=== PATIENT | male | born 1960 | race Two or more races ===

== ENCOUNTER 2022-10-28 09:47 | Inpatient (IN) | payer OTHER ==
[~2022-10-28] VITALS: Ht 188 cm; Wt 151.0 kg
[2022-10-28] MEDS ORDERED: methylPREDNISolone SOD SUCC 125 MG/2 ML VL IV ONE (10:30)
[2022-10-28 10:40] VITALS: PULSE 108; RESP 20; O2SAT 97
[2022-10-28 11:09] LABS: Basophils # (auto) 0 10 ^3/uL (0-0.2); Basophils % (auto) 0.2 % (0.0-2.0); Eosinophils # (auto) 0 10 ^3/uL (0-0.8); Lymphocytes # (auto) 0.3 10 ^3/uL (0.4-5.4); Mean Corpuscular Hemoglobin 25.6 pg (28.0-32.0)
[2022-10-28 11:13] LABS: Hematocrit 35.1 % (41.0-53.0); Lymphocytes % (auto) 2.4 % (10.0-50.0); Mean Corpuscular Hgb Conc. 31.2 g/dL (32.0-36.0); Mean Corpuscular Volume 82.1 fL (80.0-100.0); Monocytes # (auto) 0.5 10 ^3/uL (0-1.3); Monocytes % (auto) 4.3 % (0.0-12.0); Neutrophils # (auto) 11.2 10 ^3/uL (1.6-8.6); Neutrophils % (auto) 93.1 % (37.0-80.0); Nucleated Red Blood Cells % 0.2 %; Red Blood Cells 4.27 10^6/uL (4.5-5.90); Red Cell Distribution Width 19.9 % (11.8-14.3)
[2022-10-28] MEDS ORDERED: CLINDAMYCIN 900MG IV 50 ML IV ONE (11:15)
[2022-10-28 11:19] LABS: Lactic Acid w/Reflex 2.2 mmol/L (0.4-2.0)
[2022-10-28 11:21] LABS: Calcium 8.6 mg/dL (8.5-10.1); Magnesium 1.8 mg/dL (1.6-2.6); Potassium 4.5 mmol/L (3.5-5.1)
[2022-10-28] MEDS ORDERED: FUROSEMIDE 40 MG/4 ML VIAL IV ONE (11:30)
[2022-10-28 11:34] LABS: BUN/Creatinine Ratio 18.2 (10.0-20.0); Bilirubin, Total 1.4 mg/dL (0.2-1.0); Total Protein 6.6 g/dL (6.4-8.2)
[2022-10-28] MEDS ORDERED: VANCOMYCIN 1GM/250ML 250 ML IV ONE (11:45)
[2022-10-28] MEDS ORDERED: DEXTROSE (50%) 50ML SYRG IV PRN (13:45)
[2022-10-28] MEDS ORDERED: VANCOMYCIN PER PHARMACY 0 MG IV SCH (13:45)
[2022-10-28] MEDS ORDERED: IPRATROPIUM BROM 0.5 MG/2.5ML INH SOL NEB SCH (14:00)
[2022-10-28] MEDS: cefTRIAXone 1GM/50ML D5W 50 ML IV SCH (14:08)
[2022-10-28] MEDS: methylPREDNISolone SOD SUCC 125 MG/2 ML VL IV SCH ×2 (14:25→23:26)
[2022-10-28 14:44] LABS: INR 2.29 (0.9-1.15)
[2022-10-28] MEDS ORDERED: WARFARIN SODIUM 2.5 MG TAB PO ONE ×2 (17:00)
[2022-10-28 17:23] LABS: Creatinine, Urine 59 mg/dL (30.0-125.0); Sodium Urine 82 mmol/L (40-220)
[2022-10-28] MEDS: InsuLIN REG 1unit/0.01ml Soln (100units/ml) SC SCH ×2 (17:46→23:44)
[2022-10-28] MEDS: ACCU-CHEK COMFORT CURVE STRIP VI SCH ×2 (17:47→23:44)
[2022-10-28] MEDS: FUROSEMIDE 100 MG/10ML VIAL IV SCH (17:50)
[2022-10-28 18:00] LABS: Urine Bacteria FEW /hpf (None Seen); Urine Blood 1+ /uL (Negative); Urine Mucus FEW (None Seen); Urine WBC 2 /hpf (0 - 3)
[2022-10-28 19:01] VITALS: PULSE 111; RESP 23; O2SAT 97
[2022-10-28] MEDS: IPRATROPIUM BROM 0.5 MG/2.5ML INH SOL NEB SCH (19:01)
[2022-10-28] MEDS: LEVALBUTEROL HCL 1.25 MG/3 ML NEB NEB SCH (19:01)
[2022-10-28 19:11] VITALS: PULSE 103; RESP 21; O2SAT 100
[2022-10-28 20:00] VITALS: PULSE 111; RESP 24; O2SAT 95
[2022-10-28] MEDS: VANCOMYCIN 1GM/250ML 250 ML IV SCH (23:26)
[2022-10-28] MEDS: METOPROLOL TARTRATE 25 MG TAB PO SCH (23:27)
[2022-10-28] MEDS: ATORVASTATIN 20 MG TAB PO SCH (23:27)
[2022-10-29] VITALS (11 sets, daily range): BP systolic 116–117; BP diastolic 63–72; PULSE 103–127; RESP 16–23; TEMP 97.5–97.6; O2SAT 92–100
[2022-10-29] MEDS: LEVALBUTEROL HCL 1.25 MG/3 ML NEB NEB SCH ×4 (00:31→18:04)
[2022-10-29] MEDS: IPRATROPIUM BROM 0.5 MG/2.5ML INH SOL NEB SCH ×4 (00:31→18:04)
[2022-10-29 05:45] LABS: Alanine Aminotransferase 21 U/L (16-61); Albumin 2.7 g/dL (3.4-5.0); Anion Gap 11 (5-15); Aspartate Aminotransferase 31 U/L (15-37); BUN/Creatinine Ratio 21.9 (10.0-20.0); Blood Urea Nitrogen 55 mg/dL (7-18); Calcium 8.4 mg/dL (8.5-10.1); Carbon Dioxide 20 mmol/L (21-32); Chloride 111 mmol/L (98-107); GFR African American 34 mL/min; GFR Non-African American 28 mL/min; Glucose 209 mg/dL (74-106); Potassium 4.3 mmol/L (3.5-5.1); Sodium 142 mmol/L (136-145)
[2022-10-29 05:48] LABS: Alkaline Phosphatase 69 U/L (45-117); Bilirubin, Total 0.9 mg/dL (0.2-1.0); Total Protein 6.6 g/dL (6.4-8.2)
[2022-10-29] MEDS: FUROSEMIDE 100 MG/10ML VIAL IV SCH ×2 (06:10→18:29)
[2022-10-29] MEDS: methylPREDNISolone SOD SUCC 125 MG/2 ML VL IV SCH ×2 (06:11→14:45)
[2022-10-29] MEDS: ACCU-CHEK COMFORT CURVE STRIP VI SCH ×4 (06:51→22:03)
[2022-10-29] MEDS: InsuLIN REG 1unit/0.01ml Soln (100units/ml) SC SCH ×4 (06:52→22:13)
[2022-10-29 07:41] LABS: Basophils # (auto) 0 10 ^3/uL (0-0.2); Basophils % (auto) 0.1 % (0.0-2.0); Eosinophils # (auto) 0 10 ^3/uL (0-0.8); Hemoglobin 10.4 g/dL (13.5-17.5); Lymphocytes # (auto) 0.3 10 ^3/uL (0.4-5.4); Monocytes # (auto) 0.6 10 ^3/uL (0-1.3)
[2022-10-29 07:43] LABS: Lymphocytes % (auto) 2.5 % (10.0-50.0); Mean Corpuscular Hemoglobin 25.6 pg (28.0-32.0); Mean Corpuscular Hgb Conc. 32.4 g/dL (32.0-36.0); Monocytes % (auto) 5.7 % (0.0-12.0); Neutrophils # (auto) 9.7 10 ^3/uL (1.6-8.6); Neutrophils % (auto) 91.7 % (37.0-80.0); Red Blood Cells 4.05 10^6/uL (4.5-5.90); Red Cell Distribution Width 19.4 % (11.8-14.3); White Blood Cell 10.6 10^3/uL (4.4-10.8)
[2022-10-29 07:52] LABS: INR 3.45 (0.9-1.15)
[2022-10-29] MEDS: METOPROLOL TARTRATE 25 MG TAB PO SCH ×2 (10:44→22:02)
[2022-10-29] MEDS: cefTRIAXone 1GM/50ML D5W 50 ML IV SCH (10:44)
[2022-10-29] MEDS: VANCOMYCIN 1GM/250ML 250 ML IV SCH (11:26)
[2022-10-29] MEDS ORDERED: ONDANSETRON HCL 4 MG/2 ML VIAL IV PRN (16:15)
[2022-10-29] MEDS ORDERED: HYDROcodone-ACET 5/325MG TAB PO PRN (16:15)
[2022-10-29] MEDS ORDERED: MORPHINE SULFATE INJ 2 MG/ml SYRG IV PRN (16:15)
[2022-10-29] MEDS: DOXYCYCLINE 100MG/250ML 250 ML IV SCH (17:15)
[2022-10-29] MEDS: ATORVASTATIN 20 MG TAB PO SCH (22:02)
[2022-10-30] VITALS (15 sets, daily range): BP systolic 124–134; BP diastolic 71–83; PULSE 93–127; RESP 18–24; TEMP 97.3–98.7; O2SAT 95–100
[2022-10-30] MEDS: LEVALBUTEROL HCL 1.25 MG/3 ML NEB NEB SCH ×4 (01:48→18:55)
[2022-10-30] MEDS: IPRATROPIUM BROM 0.5 MG/2.5ML INH SOL NEB SCH ×4 (01:48→18:55)
[2022-10-30] MEDS: DOXYCYCLINE 100MG/250ML 250 ML IV SCH ×2 (04:10→16:16)
[2022-10-30] MEDS: ACCU-CHEK COMFORT CURVE STRIP VI SCH ×4 (05:58→23:03)
[2022-10-30] MEDS: FUROSEMIDE 100 MG/10ML VIAL IV SCH ×2 (05:58→17:32)
[2022-10-30] MEDS: InsuLIN REG 1unit/0.01ml Soln (100units/ml) SC SCH ×4 (06:10→23:09)
[2022-10-30 06:23] LABS: INR 2.87 (0.9-1.15); Partial Thromboplastin Time 41.5 sec (24.6-33.4)
[2022-10-30 06:32] LABS: Potassium 3.9 mmol/L (3.5-5.1)
[2022-10-30 06:48] LABS: Albumin 2.7 g/dL (3.4-5.0); BUN/Creatinine Ratio 27.2 (10.0-20.0); Calcium 8.5 mg/dL (8.5-10.1)
[2022-10-30 06:51] LABS: Bilirubin, Total 0.6 mg/dL (0.2-1.0); Total Protein 6.8 g/dL (6.4-8.2)
[2022-10-30 08:29] LABS: Basophils # (auto) 0 10 ^3/uL (0-0.2); Eosinophils # (auto) 0 10 ^3/uL (0-0.8); Hemoglobin 9.9 g/dL (13.5-17.5); Lymphocytes # (auto) 0.2 10 ^3/uL (0.4-5.4); Monocytes # (auto) 0.6 10 ^3/uL (0-1.3); Neutrophils # (auto) 9.1 10 ^3/uL (1.6-8.6); Neutrophils % (auto) 91.6 % (37.0-80.0); White Blood Cell 9.9 10^3/uL (4.4-10.8)
[2022-10-30 08:31] LABS: Basophils % (auto) 0.1 % (0.0-2.0); Hematocrit 30.2 % (41.0-53.0); Lymphocytes % (auto) 2.3 % (10.0-50.0); Mean Corpuscular Hemoglobin 25.9 pg (28.0-32.0); Mean Corpuscular Hgb Conc. 32.8 g/dL (32.0-36.0); Mean Corpuscular Volume 78.8 fL (80.0-100.0); Red Blood Cells 3.83 10^6/uL (4.5-5.90); Red Cell Distribution Width 19.3 % (11.8-14.3)
[2022-10-30] MEDS: cefTRIAXone 1GM/50ML D5W 50 ML IV SCH (09:11)
[2022-10-30] MEDS: METOPROLOL TARTRATE 25 MG TAB PO SCH ×2 (09:12→23:04)
[2022-10-30] MEDS ORDERED: DEXTROSE (50%) 50ML SYRG IV PRN (11:15)
[2022-10-30] MEDS: EMPAGLIFLOZIN 10 MG TAB PO SCH (12:06)
[2022-10-30] MEDS ORDERED: WARFARIN SODIUM 1 MG TAB PO ONE (17:00)
[2022-10-30] MEDS: ATORVASTATIN 20 MG TAB PO SCH (23:04)
[2022-10-31] VITALS (19 sets, daily range): BP systolic 105–143; BP diastolic 65–98; PULSE 84–118; RESP 16–24; TEMP 97.3–98.2; O2SAT 92–100
[2022-10-31] MEDS: LEVALBUTEROL HCL 1.25 MG/3 ML NEB NEB SCH ×5 (01:06→23:22)
[2022-10-31] MEDS: IPRATROPIUM BROM 0.5 MG/2.5ML INH SOL NEB SCH ×5 (01:06→23:22)
[2022-10-31] MEDS: DOXYCYCLINE 100MG/250ML 250 ML IV SCH ×2 (05:13→16:46)
[2022-10-31] MEDS: HYDROcodone-ACET 7.5/325MG TAB PO PRN ×2 (05:13→18:38)
[2022-10-31] MEDS: EMPAGLIFLOZIN 10 MG TAB PO SCH (06:17)
[2022-10-31] MEDS: FUROSEMIDE 100 MG/10ML VIAL IV SCH ×2 (06:17→18:30)
[2022-10-31] MEDS: ACCU-CHEK COMFORT CURVE STRIP VI SCH ×4 (06:18→22:51)
[2022-10-31] MEDS: InsuLIN REG 1unit/0.01ml Soln (100units/ml) SC SCH ×4 (06:24→22:54)
[2022-10-31 07:05] LABS: INR 2.39 (0.9-1.15); Partial Thromboplastin Time 30.5 sec (24.6-33.4)
[2022-10-31] MEDS: cefTRIAXone 1GM/50ML D5W 50 ML IV SCH (08:54)
[2022-10-31] MEDS: METOPROLOL TARTRATE 25 MG TAB PO SCH ×2 (08:57→22:51)
[2022-10-31 10:27] LABS: Basophils # (auto) 0 10 ^3/uL (0-0.2); Basophils % (auto) 0.3 % (0.0-2.0); Eosinophils # (auto) 0 10 ^3/uL (0-0.8); Eosinophils % (auto) 0.1 % (0.0-7.0); Hematocrit 31.4 % (41.0-53.0); Hemoglobin 10.2 g/dL (13.5-17.5); Lymphocytes # (auto) 0.5 10 ^3/uL (0.4-5.4); Lymphocytes % (auto) 5.2 % (10.0-50.0); Mean Corpuscular Hemoglobin 25.5 pg (28.0-32.0); Mean Corpuscular Hgb Conc. 32.3 g/dL (32.0-36.0); Mean Corpuscular Volume 78.8 fL (80.0-100.0); Monocytes # (auto) 0.9 10 ^3/uL (0-1.3); Monocytes % (auto) 9.3 % (0.0-12.0); Neutrophils # (auto) 8.4 10 ^3/uL (1.6-8.6); Neutrophils % (auto) 85.1 % (37.0-80.0); Nucleated Red Blood Cells % 0.1 %; Red Blood Cells 3.99 10^6/uL (4.5-5.90); Red Cell Distribution Width 19.2 % (11.8-14.3); White Blood Cell 9.8 10^3/uL (4.4-10.8)
[2022-10-31 10:58] LABS: BUN/Creatinine Ratio 28.1 (10.0-20.0); Calcium 8.3 mg/dL (8.5-10.1); Potassium 3.8 mmol/L (3.5-5.1)
[2022-10-31] MEDS ORDERED: WARFARIN SODIUM 2 MG TAB PO ONE (17:00)
[2022-10-31] MEDS: ATORVASTATIN 20 MG TAB PO SCH (22:50)
[2022-11-01] VITALS (14 sets, daily range): BP systolic 125–142; BP diastolic 72–84; PULSE 89–108; RESP 16–22; TEMP 97.3–97.9; O2SAT 81–100
[2022-11-01] MEDS: DOXYCYCLINE 100MG/250ML 250 ML IV SCH (04:40)
[2022-11-01] MEDS: HYDROcodone-ACET 7.5/325MG TAB PO PRN ×2 (06:13→18:57)
[2022-11-01] MEDS: EMPAGLIFLOZIN 10 MG TAB PO SCH (06:14)
[2022-11-01] MEDS: FUROSEMIDE 100 MG/10ML VIAL IV SCH ×2 (06:17→18:03)
[2022-11-01] MEDS: ACCU-CHEK COMFORT CURVE STRIP VI SCH ×4 (06:18→23:23)
[2022-11-01] MEDS: InsuLIN REG 1unit/0.01ml Soln (100units/ml) SC SCH ×4 (06:19→23:28)
[2022-11-01 06:31] LABS: INR 2.06 (0.9-1.15)
[2022-11-01 06:34] LABS: Potassium 3.5 mmol/L (3.5-5.1)
[2022-11-01 06:39] LABS: Calcium 8.5 mg/dL (8.5-10.1)
[2022-11-01 06:40] LABS: Basophils # (auto) 0 10 ^3/uL (0-0.2); Basophils % (auto) 0.1 % (0.0-2.0); Eosinophils # (auto) 0 10 ^3/uL (0-0.8); Hemoglobin 10.5 g/dL (13.5-17.5); Monocytes # (auto) 1.2 10 ^3/uL (0-1.3)
[2022-11-01 06:42] LABS: Eosinophils % (auto) 0.3 % (0.0-7.0); Hematocrit 31.8 % (41.0-53.0); Lymphocytes # (auto) 0.4 10 ^3/uL (0.4-5.4); Lymphocytes % (auto) 4.7 % (10.0-50.0); Mean Corpuscular Hemoglobin 26.1 pg (28.0-32.0); Mean Corpuscular Volume 79.3 fL (80.0-100.0); Monocytes % (auto) 12.3 % (0.0-12.0); Neutrophils # (auto) 7.8 10 ^3/uL (1.6-8.6); Neutrophils % (auto) 82.6 % (37.0-80.0); Nucleated Red Blood Cells % 0.3 %; Red Blood Cells 4.01 10^6/uL (4.5-5.90); Red Cell Distribution Width 19.3 % (11.8-14.3); White Blood Cell 9.5 10^3/uL (4.4-10.8)
[2022-11-01] MEDS: IPRATROPIUM BROM 0.5 MG/2.5ML INH SOL NEB SCH ×3 (07:09→19:57)
[2022-11-01] MEDS: LEVALBUTEROL HCL 1.25 MG/3 ML NEB NEB SCH ×3 (07:09→19:57)
[2022-11-01] MEDS: cefTRIAXone 1GM/50ML D5W 50 ML IV SCH (08:23)
[2022-11-01] MEDS: METOPROLOL TARTRATE 25 MG TAB PO SCH ×2 (08:28→23:23)
[2022-11-01] MEDS: POTASSIUM CHL 20MEQ/100ML 100 ML IV SCH ×2 (14:59→17:56)
[2022-11-01] MEDS ORDERED: WARFARIN SODIUM 5 MG TAB PO ONE (17:00)
[2022-11-01] MEDS ORDERED: POTASSIUM CHL 20MEQ/100ML 100 ML IV ONE (17:54)
[2022-11-01] MEDS: ATORVASTATIN 20 MG TAB PO SCH (23:22)
[2022-11-02] VITALS (15 sets, daily range): BP systolic 130–149; BP diastolic 68–95; PULSE 80–112; RESP 16–21; TEMP 97.5–98.8; O2SAT 87–100
[2022-11-02] MEDS: HYDROcodone-ACET 7.5/325MG TAB PO PRN ×3 (03:26→14:50)
[2022-11-02 06:00] LABS: Basophils # (auto) 0 10 ^3/uL (0-0.2); Eosinophils # (auto) 0.1 10 ^3/uL (0-0.8); Lymphocytes # (auto) 0.6 10 ^3/uL (0.4-5.4); Monocytes # (auto) 1.2 10 ^3/uL (0-1.3); White Blood Cell 9.3 10^3/uL (4.4-10.8)
[2022-11-02 06:02] LABS: Basophils % (auto) 0.2 % (0.0-2.0); Eosinophils % (auto) 1.5 % (0.0-7.0); Hematocrit 30.9 % (41.0-53.0); Hemoglobin 10.4 g/dL (13.5-17.5); Lymphocytes % (auto) 6.9 % (10.0-50.0); Mean Corpuscular Hemoglobin 26.2 pg (28.0-32.0); Mean Corpuscular Hgb Conc. 33.6 g/dL (32.0-36.0); Mean Corpuscular Volume 77.9 fL (80.0-100.0); Monocytes % (auto) 13.5 % (0.0-12.0); Neutrophils # (auto) 7.2 10 ^3/uL (1.6-8.6); Neutrophils % (auto) 77.9 % (37.0-80.0); Nucleated Red Blood Cells % 0.1 %; Red Blood Cells 3.97 10^6/uL (4.5-5.90); Red Cell Distribution Width 19.3 % (11.8-14.3)
[2022-11-02] MEDS: IPRATROPIUM BROM 0.5 MG/2.5ML INH SOL NEB SCH ×4 (06:09→21:01)
[2022-11-02] MEDS: LEVALBUTEROL HCL 1.25 MG/3 ML NEB NEB SCH ×4 (06:10→21:01)
[2022-11-02 06:13] LABS: INR 1.75 (0.9-1.15)
[2022-11-02 06:17] LABS: Calcium 8.6 mg/dL (8.5-10.1); Potassium 3.6 mmol/L (3.5-5.1)
[2022-11-02 06:19] LABS: BUN/Creatinine Ratio 37.6 (10.0-20.0)
[2022-11-02] MEDS: EMPAGLIFLOZIN 10 MG TAB PO SCH (06:41)
[2022-11-02] MEDS: FUROSEMIDE 100 MG/10ML VIAL IV SCH ×2 (06:42→18:25)
[2022-11-02] MEDS: InsuLIN REG 1unit/0.01ml Soln (100units/ml) SC SCH ×3 (06:44→17:00)
[2022-11-02] MEDS: ACCU-CHEK COMFORT CURVE STRIP VI SCH ×3 (07:00→17:00)
[2022-11-02] MEDS: cefTRIAXone 1GM/50ML D5W 50 ML IV SCH (08:20)
[2022-11-02] MEDS: METOPROLOL TARTRATE 25 MG TAB PO SCH (09:12)
[2022-11-02] MEDS ORDERED: WARFARIN SODIUM 1 MG TAB PO ONE ×2 (17:00)
[2022-11-02] MEDS ORDERED: WARFARIN SODIUM 5 MG TAB PO ONE ×2 (17:00)
[2022-11-03] VITALS (16 sets, daily range): BP systolic 134–155; BP diastolic 72–89; PULSE 90–117; RESP 17–20; TEMP 97.8–98; O2SAT 94–100
[2022-11-03] MEDS: ATORVASTATIN 20 MG TAB PO SCH ×2 (00:03→21:30)
[2022-11-03] MEDS: METOPROLOL TARTRATE 25 MG TAB PO SCH ×3 (00:04→15:18)
[2022-11-03] MEDS: HYDROcodone-ACET 7.5/325MG TAB PO PRN ×3 (00:04→21:33)
[2022-11-03] MEDS: InsuLIN REG 1unit/0.01ml Soln (100units/ml) SC SCH ×5 (00:05→21:36)
[2022-11-03] MEDS: ACCU-CHEK COMFORT CURVE STRIP VI SCH ×5 (00:06→21:30)
[2022-11-03] MEDS: LEVALBUTEROL HCL 1.25 MG/3 ML NEB NEB SCH ×4 (00:26→18:43)
[2022-11-03] MEDS: IPRATROPIUM BROM 0.5 MG/2.5ML INH SOL NEB SCH ×4 (00:26→18:43)
[2022-11-03 06:06] LABS: INR 1.67 (0.9-1.15); Partial Thromboplastin Time 34.8 sec (24.6-33.4)
[2022-11-03] MEDS: EMPAGLIFLOZIN 10 MG TAB PO SCH (06:21)
[2022-11-03] MEDS: FUROSEMIDE 100 MG/10ML VIAL IV SCH (06:21)
[2022-11-03] MEDS: cefTRIAXone 1GM/50ML D5W 50 ML IV SCH (09:17)
[2022-11-03] MEDS ORDERED: METOPROLOL TARTRATE 1MG/1ML-5ML VIAL IV ONE (15:15)
[2022-11-03] MEDS ORDERED: LACTULOSE 20Gm/30ML SOLN PO ONE (15:30)
[2022-11-03] MEDS ORDERED: WARFARIN SODIUM 2.5 MG TAB PO ONE (17:00)
[2022-11-03] MEDS: MILK OF MAGNESIA 30ML SUSP PO PRN (18:26)
[2022-11-03] MEDS: FUROSEMIDE 40 MG/4 ML VIAL IV SCH (18:36)
[2022-11-04] VITALS (9 sets, daily range): BP systolic 130–147; BP diastolic 80–84; PULSE 90–118; RESP 16–22; TEMP 97.5–98.5; O2SAT 94–100
[2022-11-04 06:15] LABS: Basophils # (auto) 0 10 ^3/uL (0-0.2); Lymphocytes # (auto) 0.7 10 ^3/uL (0.4-5.4); Neutrophils # (auto) 6.5 10 ^3/uL (1.6-8.6); Nucleated Red Blood Cells % 0.1 %; White Blood Cell 8.2 10^3/uL (4.4-10.8)
[2022-11-04 06:16] LABS: INR 1.81 (0.9-1.15); Partial Thromboplastin Time 35.6 SEC (24.5-34.5)
[2022-11-04] MEDS: EMPAGLIFLOZIN 10 MG TAB PO SCH (06:16)
[2022-11-04 06:17] LABS: Basophils % (auto) 0.3 % (0.0-2.0); Eosinophils # (auto) 0.1 10 ^3/uL (0-0.8); Eosinophils % (auto) 1.5 % (0.0-7.0); Hematocrit 31.1 % (41.0-53.0); Hemoglobin 10.2 g/dL (13.5-17.5); Lymphocytes % (auto) 8.5 % (10.0-50.0); Mean Corpuscular Hemoglobin 25.8 pg (28.0-32.0); Mean Corpuscular Hgb Conc. 32.9 g/dL (32.0-36.0); Mean Corpuscular Volume 78.3 fL (80.0-100.0); Monocytes # (auto) 0.9 10 ^3/uL (0-1.3); Monocytes % (auto) 10.7 % (0.0-12.0); Red Blood Cells 3.97 10^6/uL (4.5-5.90); Red Cell Distribution Width 18.8 % (11.8-14.3)
[2022-11-04] MEDS: FUROSEMIDE 40 MG/4 ML VIAL IV SCH ×2 (06:17→17:50)
[2022-11-04] MEDS: ACCU-CHEK COMFORT CURVE STRIP VI SCH ×4 (06:17→21:34)
[2022-11-04 06:19] LABS: Albumin 2.8 g/dL (3.4-5.0); Calcium 8.7 mg/dL (8.5-10.1); Potassium 3.3 mmol/L (3.5-5.1)
[2022-11-04 06:22] LABS: BUN/Creatinine Ratio 33.3 (10.0-20.0); Bilirubin, Total 1.2 mg/dL (0.2-1.0); Total Protein 6.8 g/dL (6.4-8.2)
[2022-11-04] MEDS: InsuLIN REG 1unit/0.01ml Soln (100units/ml) SC SCH ×4 (06:22→21:41)
[2022-11-04] MEDS: LEVALBUTEROL HCL 1.25 MG/3 ML NEB NEB SCH ×4 (07:23→18:59)
[2022-11-04] MEDS: IPRATROPIUM BROM 0.5 MG/2.5ML INH SOL NEB SCH ×4 (07:24→18:59)
[2022-11-04] MEDS: cefTRIAXone 1GM/50ML D5W 50 ML IV SCH (09:12)
[2022-11-04] MEDS: METOPROLOL TARTRATE 25 MG TAB PO SCH ×2 (09:12→21:31)
[2022-11-04] MEDS ORDERED: POTASSIUM CHL 20 Meq TABLET PO ONE (18:15)
[2022-11-04] MEDS ORDERED: WARFARIN SODIUM 2.5 MG TAB PO ONE (18:30)
[2022-11-04] MEDS: ATORVASTATIN 20 MG TAB PO SCH (21:30)
[2022-11-05] VITALS (16 sets, daily range): BP systolic 125–147; BP diastolic 63–81; PULSE 89–117; RESP 16–20; TEMP 97.6–98.6; O2SAT 93–100
[2022-11-05] MEDS: IPRATROPIUM BROM 0.5 MG/2.5ML INH SOL NEB SCH ×4 (00:51→19:28)
[2022-11-05] MEDS: LEVALBUTEROL HCL 1.25 MG/3 ML NEB NEB SCH ×4 (00:52→19:28)
[2022-11-05] MEDS: FUROSEMIDE 40 MG/4 ML VIAL IV SCH ×2 (05:59→17:46)
[2022-11-05] MEDS: EMPAGLIFLOZIN 10 MG TAB PO SCH (06:00)
[2022-11-05] MEDS: ACCU-CHEK COMFORT CURVE STRIP VI SCH ×4 (06:00→21:29)
[2022-11-05] MEDS: InsuLIN REG 1unit/0.01ml Soln (100units/ml) SC SCH ×4 (06:22→21:32)
[2022-11-05 06:23] LABS: INR 2.12 (0.9-1.15); Partial Thromboplastin Time 36.7 SEC (24.5-34.5)
[2022-11-05] MEDS: cefTRIAXone 1GM/50ML D5W 50 ML IV SCH (10:09)
[2022-11-05] MEDS: METOPROLOL TARTRATE 25 MG TAB PO SCH ×2 (10:10→21:21)
[2022-11-05] MEDS ORDERED: WARFARIN SODIUM 2.5 MG TAB PO ONE (17:00)
[2022-11-05] MEDS: ATORVASTATIN 20 MG TAB PO SCH (21:20)
[2022-11-06] VITALS (14 sets, daily range): BP systolic 122–138; BP diastolic 70–87; PULSE 94–117; RESP 16–20; TEMP 97.7–98.1; O2SAT 94–100
[2022-11-06] MEDS: LEVALBUTEROL HCL 1.25 MG/3 ML NEB NEB SCH ×4 (00:26→19:02)
[2022-11-06] MEDS: IPRATROPIUM BROM 0.5 MG/2.5ML INH SOL NEB SCH ×4 (00:26→19:02)
[2022-11-06 06:03] LABS: INR 2.06 (0.9-1.15); Partial Thromboplastin Time 37.6 SEC (24.5-34.5)
[2022-11-06] MEDS: FUROSEMIDE 40 MG/4 ML VIAL IV SCH (06:08)
[2022-11-06] MEDS: ACCU-CHEK COMFORT CURVE STRIP VI SCH ×4 (06:08→22:19)
[2022-11-06] MEDS: EMPAGLIFLOZIN 10 MG TAB PO SCH (06:16)
[2022-11-06] MEDS: InsuLIN REG 1unit/0.01ml Soln (100units/ml) SC SCH ×4 (06:23→22:28)
[2022-11-06] MEDS: cefTRIAXone 1GM/50ML D5W 50 ML IV SCH (10:43)
[2022-11-06] MEDS: METOPROLOL TARTRATE 25 MG TAB PO SCH ×2 (10:43→22:18)
[2022-11-06] MEDS ORDERED: POTASSIUM CHL 20 Meq TABLET PO ONE (14:45)
[2022-11-06 15:04] LABS: BUN/Creatinine Ratio 26.4 (10.0-20.0); Calcium 8.3 mg/dL (8.5-10.1); Potassium 3.2 mmol/L (3.5-5.1)
[2022-11-06 15:28] LABS: Eosinophils # (auto) 0.1 10 ^3/uL (0-0.8); Eosinophils % (auto) 0.9 % (0.0-7.0); Hemoglobin 9.4 g/dL (13.5-17.5); Monocytes % (auto) 9.6 % (0.0-12.0); Red Cell Distribution Width 19.7 % (11.8-14.3)
[2022-11-06 15:30] LABS: Basophils # (auto) 0 10 ^3/uL (0-0.2); Basophils % (auto) 0.4 % (0.0-2.0); Hematocrit 30.4 % (41.0-53.0); Lymphocytes # (auto) 0.8 10 ^3/uL (0.4-5.4); Mean Corpuscular Hemoglobin 24.9 pg (28.0-32.0); Mean Corpuscular Volume 80.1 fL (80.0-100.0); Neutrophils # (auto) 8.4 10 ^3/uL (1.6-8.6); Neutrophils % (auto) 81.1 % (37.0-80.0); Nucleated Red Blood Cells % 0.1 %; White Blood Cell 10.3 10^3/uL (4.4-10.8)
[2022-11-06] MEDS: HYDROcodone-ACET 7.5/325MG TAB PO PRN (15:36)
[2022-11-06] MEDS ORDERED: WARFARIN SODIUM 2.5 MG TAB PO ONE (17:00)
[2022-11-06] MEDS: ATORVASTATIN 20 MG TAB PO SCH (22:18)
[2022-11-07] VITALS (17 sets, daily range): BP systolic 99–127; BP diastolic 65–77; PULSE 57–115; RESP 19–26; TEMP 97.9–98.7; O2SAT 93–100
[2022-11-07] MEDS: IPRATROPIUM BROM 0.5 MG/2.5ML INH SOL NEB SCH ×4 (00:21→19:08)
[2022-11-07] MEDS: LEVALBUTEROL HCL 1.25 MG/3 ML NEB NEB SCH ×4 (00:21→19:08)
[2022-11-07] MEDS: FUROSEMIDE 40 MG/4 ML VIAL IV SCH ×3 (06:16→17:42)
[2022-11-07] MEDS: ACCU-CHEK COMFORT CURVE STRIP VI SCH ×4 (06:16→21:53)
[2022-11-07] MEDS: HYDROcodone-ACET 7.5/325MG TAB PO PRN ×2 (06:17→14:25)
[2022-11-07] MEDS: EMPAGLIFLOZIN 10 MG TAB PO SCH (06:17)
[2022-11-07] MEDS: InsuLIN REG 1unit/0.01ml Soln (100units/ml) SC SCH ×4 (06:30→22:07)
[2022-11-07 06:46] LABS: INR 2.02 (0.9-1.15)
[2022-11-07] MEDS: METOPROLOL TARTRATE 25 MG TAB PO SCH ×2 (10:16→21:53)
[2022-11-07] MEDS: cefTRIAXone 1GM/50ML D5W 50 ML IV SCH (10:16)
[2022-11-07 15:35] LABS: Uric Acid 4.7 mg/dL (3.5-7.2)
[2022-11-07 15:44] LABS: CRP High Sensitivity 13.6 mg/dL (< 0.3)
[2022-11-07] MEDS ORDERED: POTASSIUM CHL 20 Meq TABLET PO ONE (15:45)
[2022-11-07 16:48] LABS: BUN/Creatinine Ratio 24.2 (10.0-20.0); Calcium 8.2 mg/dL (8.5-10.1); Magnesium 2.4 mg/dL (1.6-2.6); Potassium 3.5 mmol/L (3.5-5.1)
[2022-11-07] MEDS ORDERED: WARFARIN SODIUM 2 MG TAB PO ONE (17:00)
[2022-11-07 17:38] LABS: Basophils # (auto) 0.1 10 ^3/uL (0-0.2); Eosinophils # (auto) 0.1 10 ^3/uL (0-0.8); Eosinophils % (auto) 1.4 % (0.0-7.0); Hemoglobin 9.2 g/dL (13.5-17.5); Lymphocytes # (auto) 0.8 10 ^3/uL (0.4-5.4); Monocytes # (auto) 0.8 10 ^3/uL (0-1.3); Neutrophils # (auto) 7.4 10 ^3/uL (1.6-8.6); White Blood Cell 9.2 10^3/uL (4.4-10.8)
[2022-11-07 17:39] LABS: Basophils % (auto) 0.6 % (0.0-2.0); Hematocrit 28.4 % (41.0-53.0); Lymphocytes % (auto) 8.4 % (10.0-50.0); Mean Corpuscular Hgb Conc. 32.2 g/dL (32.0-36.0); Mean Corpuscular Volume 77.7 fL (80.0-100.0); Monocytes % (auto) 8.8 % (0.0-12.0); Neutrophils % (auto) 80.8 % (37.0-80.0); Red Blood Cells 3.66 10^6/uL (4.5-5.90); Red Cell Distribution Width 18.5 % (11.8-14.3)
[2022-11-07] MEDS: ATORVASTATIN 20 MG TAB PO SCH (21:53)
[2022-11-08] VITALS (17 sets, daily range): BP systolic 119–151; BP diastolic 72–81; PULSE 85–132; RESP 18–22; TEMP 98.5–99.3; O2SAT 90–100
[2022-11-08] MEDS: LEVALBUTEROL HCL 1.25 MG/3 ML NEB NEB SCH ×4 (00:40→19:01)
[2022-11-08] MEDS: IPRATROPIUM BROM 0.5 MG/2.5ML INH SOL NEB SCH ×4 (00:40→19:01)
[2022-11-08 05:08] LABS: Eosinophils # (auto) 0.1 10 ^3/uL (0-0.8); Hematocrit 28.5 % (41.0-53.0); Monocytes # (auto) 0.8 10 ^3/uL (0-1.3)
[2022-11-08 05:11] LABS: Basophils # (auto) 0.1 10 ^3/uL (0-0.2); Basophils % (auto) 0.7 % (0.0-2.0); Eosinophils % (auto) 1.3 % (0.0-7.0); Hemoglobin 9.5 g/dL (13.5-17.5); Lymphocytes # (auto) 0.8 10 ^3/uL (0.4-5.4); Lymphocytes % (auto) 8.3 % (10.0-50.0); Mean Corpuscular Hemoglobin 26.1 pg (28.0-32.0); Mean Corpuscular Hgb Conc. 33.5 g/dL (32.0-36.0); Mean Corpuscular Volume 77.9 fL (80.0-100.0); Monocytes % (auto) 8.9 % (0.0-12.0); Neutrophils # (auto) 7.6 10 ^3/uL (1.6-8.6); Neutrophils % (auto) 80.8 % (37.0-80.0); Nucleated Red Blood Cells % 0.1 %; Red Blood Cells 3.66 10^6/uL (4.5-5.90); Red Cell Distribution Width 18.8 % (11.8-14.3); White Blood Cell 9.4 10^3/uL (4.4-10.8)
[2022-11-08 05:22] LABS: INR 2.37 (0.9-1.15); Partial Thromboplastin Time 36.6 SEC (24.5-34.5)
[2022-11-08] MEDS: EMPAGLIFLOZIN 10 MG TAB PO SCH (06:14)
[2022-11-08] MEDS: ACCU-CHEK COMFORT CURVE STRIP VI SCH ×4 (06:14→21:56)
[2022-11-08] MEDS: FUROSEMIDE 40 MG/4 ML VIAL IV SCH ×2 (06:14→17:26)
[2022-11-08] MEDS: InsuLIN REG 1unit/0.01ml Soln (100units/ml) SC SCH ×4 (06:18→22:05)
[2022-11-08] MEDS: POTASSIUM CHL 20 Meq TABLET PO SCH (10:30)
[2022-11-08] MEDS: METOPROLOL TARTRATE 25 MG TAB PO SCH ×2 (10:31→21:56)
[2022-11-08] MEDS: ACETAMINOPHEN 500 MG TAB PO PRN (16:22)
[2022-11-08] MEDS ORDERED: WARFARIN SODIUM 2.5 MG TAB PO ONE (17:00)
[2022-11-08] MEDS: ATORVASTATIN 20 MG TAB PO SCH (21:55)
[2022-11-09] VITALS (16 sets, daily range): BP systolic 106–136; BP diastolic 58–82; PULSE 83–134; RESP 16–28; TEMP 98.1–99.5; O2SAT 92–100
[2022-11-09] MEDS: LEVALBUTEROL HCL 1.25 MG/3 ML NEB NEB SCH ×4 (00:19→18:25)
[2022-11-09] MEDS: IPRATROPIUM BROM 0.5 MG/2.5ML INH SOL NEB SCH ×4 (00:20→18:25)
[2022-11-09] MEDS: FUROSEMIDE 40 MG/4 ML VIAL IV SCH ×2 (05:47→17:38)
[2022-11-09 05:58] LABS: INR 2.48 (0.9-1.15); Partial Thromboplastin Time 36.4 SEC (24.5-34.5)
[2022-11-09] MEDS: ACCU-CHEK COMFORT CURVE STRIP VI SCH ×4 (06:30→22:24)
[2022-11-09] MEDS: InsuLIN REG 1unit/0.01ml Soln (100units/ml) SC SCH ×4 (06:33→22:35)
[2022-11-09] MEDS: EMPAGLIFLOZIN 10 MG TAB PO SCH (06:33)
[2022-11-09] MEDS: POTASSIUM CHL 20 Meq TABLET PO SCH (11:03)
[2022-11-09] MEDS: METOPROLOL TARTRATE 25 MG TAB PO SCH ×2 (11:04→22:28)
[2022-11-09] MEDS: CELECOXIB 100 MG CAP PO SCH ×2 (11:10→22:28)
[2022-11-09 11:33] LABS: BUN/Creatinine Ratio 23.4 (10.0-20.0); Calcium 8.5 mg/dL (8.5-10.1); Potassium 3.9 mmol/L (3.5-5.1)
[2022-11-09 11:55] LABS: % Iron Saturation 11.5 % (20-55)
[2022-11-09] MEDS ORDERED: WARFARIN SODIUM 5 MG TAB PO ONE (17:00)
[2022-11-09] MEDS: FERROUS SULFATE 325mg EC TAB PO SCH (17:41)
[2022-11-09] MEDS: ATORVASTATIN 20 MG TAB PO SCH (22:27)
[2022-11-10] VITALS (15 sets, daily range): BP systolic 117–127; BP diastolic 73–80; PULSE 86–126; RESP 16–21; TEMP 97.9–99.3; O2SAT 93–100
[2022-11-10] MEDS: IPRATROPIUM BROM 0.5 MG/2.5ML INH SOL NEB SCH ×4 (00:13→19:43)
[2022-11-10] MEDS: LEVALBUTEROL HCL 1.25 MG/3 ML NEB NEB SCH ×4 (00:13→19:43)
[2022-11-10 06:00] LABS: INR 2.17 (0.9-1.15); Partial Thromboplastin Time 36.5 SEC (24.5-34.5)
[2022-11-10 06:01] LABS: Basophils # (auto) 0.1 10 ^3/uL (0-0.2); Eosinophils # (auto) 0.1 10 ^3/uL (0-0.8); Eosinophils % (auto) 1.8 % (0.0-7.0); Hematocrit 28.1 % (41.0-53.0); Hemoglobin 9.1 g/dL (13.5-17.5); Lymphocytes # (auto) 0.7 10 ^3/uL (0.4-5.4); Lymphocytes % (auto) 9.2 % (10.0-50.0); Mean Corpuscular Hemoglobin 25.6 pg (28.0-32.0); Mean Corpuscular Hgb Conc. 32.3 g/dL (32.0-36.0); Mean Corpuscular Volume 79.1 fL (80.0-100.0); Monocytes # (auto) 0.7 10 ^3/uL (0-1.3); Monocytes % (auto) 9.6 % (0.0-12.0); Neutrophils # (auto) 6.2 10 ^3/uL (1.6-8.6); Neutrophils % (auto) 78.4 % (37.0-80.0); Red Blood Cells 3.56 10^6/uL (4.5-5.90); Red Cell Distribution Width 18.8 % (11.8-14.3); White Blood Cell 7.8 10^3/uL (4.4-10.8)
[2022-11-10 06:07] LABS: Potassium 3.6 mmol/L (3.5-5.1)
[2022-11-10 06:16] LABS: Albumin 2.2 g/dL (3.4-5.0); BUN/Creatinine Ratio 24.3 (10.0-20.0); Bilirubin, Total 1.2 mg/dL (0.2-1.0); Calcium 8.6 mg/dL (8.5-10.1); Total Protein 6.7 g/dL (6.4-8.2)
[2022-11-10] MEDS: ACCU-CHEK COMFORT CURVE STRIP VI SCH ×4 (06:17→22:06)
[2022-11-10] MEDS: EMPAGLIFLOZIN 10 MG TAB PO SCH (07:16)
[2022-11-10] MEDS: FUROSEMIDE 40 MG/4 ML VIAL IV SCH (07:17)
[2022-11-10] MEDS: InsuLIN REG 1unit/0.01ml Soln (100units/ml) SC SCH ×4 (07:23→22:11)
[2022-11-10] MEDS: POTASSIUM CHL 20 Meq TABLET PO SCH (09:03)
[2022-11-10] MEDS: COLCHICINE 0.6 MG CAP PO SCH (09:03)
[2022-11-10] MEDS: CELECOXIB 100 MG CAP PO SCH ×2 (09:03→22:09)
[2022-11-10] MEDS: FERROUS SULFATE 325mg EC TAB PO SCH ×2 (09:03→17:43)
[2022-11-10] MEDS: METOPROLOL TARTRATE 25 MG TAB PO SCH ×2 (09:04→22:06)
[2022-11-10] MEDS ORDERED: WARFARIN SODIUM 2.5 MG TAB PO ONE (17:00)
[2022-11-10] MEDS: FUROSEMIDE 20 MG TAB PO SCH (17:43)
[2022-11-10] MEDS: ATORVASTATIN 20 MG TAB PO SCH (22:06)
[2022-11-11] VITALS (16 sets, daily range): BP systolic 105–129; BP diastolic 66–80; PULSE 42–120; RESP 18–20; TEMP 97.9–99.4; O2SAT 90–100
[2022-11-11] MEDS: IPRATROPIUM BROM 0.5 MG/2.5ML INH SOL NEB SCH ×4 (00:30→18:32)
[2022-11-11] MEDS: LEVALBUTEROL HCL 1.25 MG/3 ML NEB NEB SCH ×4 (00:30→18:32)
[2022-11-11 06:07] LABS: Basophils # (auto) 0.1 10 ^3/uL (0-0.2); Eosinophils # (auto) 0.1 10 ^3/uL (0-0.8); Lymphocytes # (auto) 0.7 10 ^3/uL (0.4-5.4); Lymphocytes % (auto) 10.9 % (10.0-50.0); Monocytes # (auto) 0.7 10 ^3/uL (0-1.3); Neutrophils # (auto) 4.6 10 ^3/uL (1.6-8.6); White Blood Cell 6.1 10^3/uL (4.4-10.8)
[2022-11-11 06:11] LABS: Basophils % (auto) 1.2 % (0.0-2.0); Eosinophils % (auto) 0.8 % (0.0-7.0); Hematocrit 27.5 % (41.0-53.0); Hemoglobin 9.2 g/dL (13.5-17.5); Mean Corpuscular Hemoglobin 25.8 pg (28.0-32.0); Mean Corpuscular Hgb Conc. 33.3 g/dL (32.0-36.0); Mean Corpuscular Volume 77.4 fL (80.0-100.0); Monocytes % (auto) 12.1 % (0.0-12.0); Red Blood Cells 3.56 10^6/uL (4.5-5.90); Red Cell Distribution Width 19.4 % (11.8-14.3)
[2022-11-11] MEDS: FUROSEMIDE 20 MG TAB PO SCH ×2 (06:17→17:54)
[2022-11-11] MEDS: EMPAGLIFLOZIN 10 MG TAB PO SCH (06:18)
[2022-11-11] MEDS: ACCU-CHEK COMFORT CURVE STRIP VI SCH ×4 (06:18→21:31)
[2022-11-11 06:19] LABS: INR 2.5 (0.9-1.15); Partial Thromboplastin Time 36.4 SEC (24.5-34.5)
[2022-11-11] MEDS: InsuLIN REG 1unit/0.01ml Soln (100units/ml) SC SCH ×4 (06:20→21:48)
[2022-11-11 06:24] LABS: Albumin 2.1 g/dL (3.4-5.0); Calcium 8.1 mg/dL (8.5-10.1)
[2022-11-11 06:33] LABS: Bilirubin, Total 1.5 mg/dL (0.2-1.0); Total Protein 6.8 g/dL (6.4-8.2)
[2022-11-11 06:39] LABS: BUN/Creatinine Ratio 23.2 (10.0-20.0)
[2022-11-11] MEDS: FERROUS SULFATE 325mg EC TAB PO SCH ×2 (08:57→17:54)
[2022-11-11] MEDS: CELECOXIB 100 MG CAP PO SCH ×2 (08:57→21:31)
[2022-11-11] MEDS: COLCHICINE 0.6 MG CAP PO SCH (08:57)
[2022-11-11] MEDS: POTASSIUM CHL 20 Meq TABLET PO SCH (08:57)
[2022-11-11] MEDS: METOPROLOL TARTRATE 25 MG TAB PO SCH ×2 (08:58→21:43)
[2022-11-11] MEDS: ACETAMINOPHEN 500 MG TAB PO PRN (14:24)
[2022-11-11] MEDS ORDERED: WARFARIN SODIUM 5 MG TAB PO ONE (17:00)
[2022-11-11] MEDS: ATORVASTATIN 20 MG TAB PO SCH (21:31)
[2022-11-12] VITALS (18 sets, daily range): BP systolic 107–127; BP diastolic 55–69; PULSE 94–116; RESP 16–26; TEMP 98.1–98.9; O2SAT 92–100
[2022-11-12] MEDS: IPRATROPIUM BROM 0.5 MG/2.5ML INH SOL NEB SCH ×5 (01:15→23:46)
[2022-11-12] MEDS: LEVALBUTEROL HCL 1.25 MG/3 ML NEB NEB SCH ×5 (01:15→23:46)
[2022-11-12 05:55] LABS: INR 2.62 (0.9-1.15); Partial Thromboplastin Time 37.5 SEC (24.5-34.5)
[2022-11-12] MEDS: EMPAGLIFLOZIN 10 MG TAB PO SCH (06:22)
[2022-11-12] MEDS: ACCU-CHEK COMFORT CURVE STRIP VI SCH ×4 (06:22→21:58)
[2022-11-12] MEDS: FUROSEMIDE 20 MG TAB PO SCH ×2 (06:23→17:58)
[2022-11-12] MEDS: InsuLIN REG 1unit/0.01ml Soln (100units/ml) SC SCH ×4 (07:31→22:01)
[2022-11-12] MEDS: FERROUS SULFATE 325mg EC TAB PO SCH ×2 (08:32→17:58)
[2022-11-12] MEDS: COLCHICINE 0.6 MG CAP PO SCH (08:32)
[2022-11-12] MEDS: METOPROLOL TARTRATE 25 MG TAB PO SCH ×2 (08:33→21:58)
[2022-11-12] MEDS: POTASSIUM CHL 20 Meq TABLET PO SCH (08:33)
[2022-11-12] MEDS: CELECOXIB 100 MG CAP PO SCH ×2 (08:34→21:57)
[2022-11-12] MEDS ORDERED: WARFARIN SODIUM 2 MG TAB PO ONE (17:00)
[2022-11-12] MEDS: MILK OF MAGNESIA 30ML SUSP PO PRN (18:00)
[2022-11-12] MEDS: ATORVASTATIN 20 MG TAB PO SCH (21:57)
[2022-11-13] VITALS (16 sets, daily range): BP systolic 105–119; BP diastolic 54–69; PULSE 90–121; RESP 16–22; TEMP 98.1–98.6; O2SAT 92–100
[2022-11-13] MEDS: EMPAGLIFLOZIN 10 MG TAB PO SCH (06:11)
[2022-11-13] MEDS: ACCU-CHEK COMFORT CURVE STRIP VI SCH ×4 (06:11→22:23)
[2022-11-13] MEDS: FUROSEMIDE 20 MG TAB PO SCH ×2 (06:11→19:21)
[2022-11-13] MEDS: InsuLIN REG 1unit/0.01ml Soln (100units/ml) SC SCH ×4 (06:14→22:26)
[2022-11-13] MEDS: LEVALBUTEROL HCL 1.25 MG/3 ML NEB NEB SCH ×3 (06:38→19:14)
[2022-11-13] MEDS: IPRATROPIUM BROM 0.5 MG/2.5ML INH SOL NEB SCH ×3 (06:38→19:13)
[2022-11-13 06:57] LABS: INR 2.48 (0.9-1.15); Partial Thromboplastin Time 39.6 SEC (24.5-34.5)
[2022-11-13 07:02] LABS: Basophils # (auto) 0 10 ^3/uL (0-0.2); Eosinophils # (auto) 0.1 10 ^3/uL (0-0.8); Hemoglobin 9.3 g/dL (13.5-17.5); Lymphocytes # (auto) 0.6 10 ^3/uL (0.4-5.4); Monocytes # (auto) 0.8 10 ^3/uL (0-1.3); Monocytes % (auto) 10.7 % (0.0-12.0); Neutrophils # (auto) 5.9 10 ^3/uL (1.6-8.6); Nucleated Red Blood Cells % 0.1 %
[2022-11-13 07:04] LABS: Basophils % (auto) 0.6 % (0.0-2.0); Eosinophils % (auto) 1.1 % (0.0-7.0); Lymphocytes % (auto) 7.8 % (10.0-50.0); Mean Corpuscular Hemoglobin 25.2 pg (28.0-32.0); Mean Corpuscular Hgb Conc. 32.1 g/dL (32.0-36.0); Mean Corpuscular Volume 78.4 fL (80.0-100.0); Neutrophils % (auto) 79.8 % (37.0-80.0); Red Blood Cells 3.69 10^6/uL (4.5-5.90); White Blood Cell 7.5 10^3/uL (4.4-10.8)
[2022-11-13 07:32] LABS: Potassium 3.7 mmol/L (3.5-5.1)
[2022-11-13 07:45] LABS: BUN/Creatinine Ratio 24.4 (10.0-20.0); Bilirubin, Total 1.2 mg/dL (0.2-1.0); Calcium 8.6 mg/dL (8.5-10.1); Magnesium 2.4 mg/dL (1.6-2.6); Total Protein 6.9 g/dL (6.4-8.2)
[2022-11-13] MEDS: FERROUS SULFATE 325mg EC TAB PO SCH ×2 (08:28→19:19)
[2022-11-13] MEDS ORDERED: POTASSIUM CHL 20 Meq TABLET PO ONE (09:45)
[2022-11-13] MEDS: METOPROLOL TARTRATE 25 MG TAB PO SCH ×2 (10:50→22:23)
[2022-11-13] MEDS: CELECOXIB 100 MG CAP PO SCH ×2 (10:51→19:19)
[2022-11-13] MEDS: COLCHICINE 0.6 MG CAP PO SCH (10:52)
[2022-11-13] MEDS: POTASSIUM CHL 20 Meq TABLET PO SCH (11:08)
[2022-11-13] MEDS: MILK OF MAGNESIA 30ML SUSP PO PRN (11:08)
[2022-11-13] MEDS ORDERED: WARFARIN SODIUM 2 MG TAB PO ONE (17:00)
[2022-11-13] MEDS ORDERED: LACTULOSE 20Gm/30ML SOLN PO PRN (17:30)
[2022-11-13] MEDS: ATORVASTATIN 20 MG TAB PO SCH (22:23)
[2022-11-14] VITALS (15 sets, daily range): BP systolic 106–117; BP diastolic 58–74; PULSE 74–120; RESP 18–22; TEMP 97.8–98.6; O2SAT 93–100
[2022-11-14] MEDS: IPRATROPIUM BROM 0.5 MG/2.5ML INH SOL NEB SCH ×4 (00:42→19:42)
[2022-11-14] MEDS: LEVALBUTEROL HCL 1.25 MG/3 ML NEB NEB SCH ×4 (00:42→19:42)
[2022-11-14] MEDS: EMPAGLIFLOZIN 10 MG TAB PO SCH (06:00)
[2022-11-14] MEDS: FUROSEMIDE 20 MG TAB PO SCH ×2 (06:00→18:13)
[2022-11-14] MEDS: InsuLIN REG 1unit/0.01ml Soln (100units/ml) SC SCH ×4 (06:02→22:23)
[2022-11-14] MEDS: ACCU-CHEK COMFORT CURVE STRIP VI SCH ×4 (06:02→22:19)
[2022-11-14 07:01] LABS: INR 3.57 (0.9-1.15); Partial Thromboplastin Time 41.6 SEC (24.5-34.5)
[2022-11-14 07:07] LABS: Basophils # (auto) 0.1 10 ^3/uL (0-0.2); Eosinophils # (auto) 0.1 10 ^3/uL (0-0.8); Eosinophils % (auto) 1.2 % (0.0-7.0); Lymphocytes # (auto) 0.6 10 ^3/uL (0.4-5.4); Monocytes # (auto) 0.9 10 ^3/uL (0-1.3); Neutrophils # (auto) 6.6 10 ^3/uL (1.6-8.6); White Blood Cell 8.3 10^3/uL (4.4-10.8)
[2022-11-14 07:09] LABS: Basophils % (auto) 0.9 % (0.0-2.0); Hematocrit 29.9 % (41.0-53.0); Hemoglobin 9.9 g/dL (13.5-17.5); Lymphocytes % (auto) 7.1 % (10.0-50.0); Mean Corpuscular Volume 78.9 fL (80.0-100.0); Monocytes % (auto) 11.1 % (0.0-12.0); Neutrophils % (auto) 79.7 % (37.0-80.0); Nucleated Red Blood Cells % 0.1 %; Red Blood Cells 3.79 10^6/uL (4.5-5.90); Red Cell Distribution Width 19.1 % (11.8-14.3)
[2022-11-14 07:33] LABS: Calcium 8.5 mg/dL (8.5-10.1); Magnesium 2.3 mg/dL (1.6-2.6); Potassium 3.4 mmol/L (3.5-5.1)
[2022-11-14 07:36] LABS: BUN/Creatinine Ratio 23.3 (10.0-20.0); Bilirubin, Total 1.2 mg/dL (0.2-1.0)
[2022-11-14] MEDS: FERROUS SULFATE 325mg EC TAB PO SCH ×2 (08:00→18:00)
[2022-11-14] MEDS ORDERED: POTASSIUM CHL 20 Meq TABLET PO ONE (08:30)
[2022-11-14] MEDS: COLCHICINE 0.6 MG CAP PO SCH (09:36)
[2022-11-14] MEDS: METOPROLOL TARTRATE 25 MG TAB PO SCH ×2 (09:37→22:14)
[2022-11-14] MEDS: POTASSIUM CHL 20 Meq TABLET PO SCH (10:00)
[2022-11-14] MEDS: CELECOXIB 100 MG CAP PO SCH ×2 (10:15→22:14)
[2022-11-14 12:12] LABS: Eosinophils # (auto) 0.1 10 ^3/uL (0-0.8); Hemoglobin 9.5 g/dL (13.5-17.5); Lymphocytes # (auto) 0.6 10 ^3/uL (0.4-5.4); Lymphocytes % (auto) 7.8 % (10.0-50.0); Mean Corpuscular Volume 78.9 fL (80.0-100.0); Monocytes # (auto) 0.9 10 ^3/uL (0-1.3); Neutrophils % (auto) 79.4 % (37.0-80.0)
[2022-11-14 12:14] LABS: Basophils # (auto) 0 10 ^3/uL (0-0.2); Basophils % (auto) 0.6 % (0.0-2.0); Mean Corpuscular Hgb Conc. 31.7 g/dL (32.0-36.0); Monocytes % (auto) 11.2 % (0.0-12.0); Neutrophils # (auto) 6.4 10 ^3/uL (1.6-8.6); Red Blood Cells 3.81 10^6/uL (4.5-5.90); Red Cell Distribution Width 18.5 % (11.8-14.3); White Blood Cell 8.1 10^3/uL (4.4-10.8)
[2022-11-14] MEDS ORDERED: WARFARIN SODIUM 2 MG TAB PO ONE (17:00)
[2022-11-14] MEDS: ATORVASTATIN 20 MG TAB PO SCH (22:14)
[2022-11-15] VITALS (18 sets, daily range): BP systolic 102–136; BP diastolic 54–68; PULSE 88–134; RESP 16–24; TEMP 96.4–98.6; O2SAT 93–100
[2022-11-15] MEDS: LEVALBUTEROL HCL 1.25 MG/3 ML NEB NEB SCH ×5 (00:10→23:54)
[2022-11-15] MEDS: IPRATROPIUM BROM 0.5 MG/2.5ML INH SOL NEB SCH ×5 (00:10→23:54)
[2022-11-15 06:07] LABS: INR 3.85 (0.9-1.15)
[2022-11-15] MEDS: EMPAGLIFLOZIN 10 MG TAB PO SCH (06:26)
[2022-11-15] MEDS: ACCU-CHEK COMFORT CURVE STRIP VI SCH ×4 (06:27→21:48)
[2022-11-15] MEDS: FUROSEMIDE 20 MG TAB PO SCH ×2 (06:31→18:16)
[2022-11-15] MEDS: InsuLIN REG 1unit/0.01ml Soln (100units/ml) SC SCH ×4 (06:34→21:50)
[2022-11-15] MEDS: FERROUS SULFATE 325mg EC TAB PO SCH ×2 (08:00→18:00)
[2022-11-15] MEDS: COLCHICINE 0.6 MG CAP PO SCH (10:19)
[2022-11-15] MEDS: POTASSIUM CHL 20 Meq TABLET PO SCH (10:19)
[2022-11-15] MEDS: METOPROLOL TARTRATE 25 MG TAB PO SCH ×2 (10:31→21:52)
[2022-11-15] MEDS: CELECOXIB 100 MG CAP PO SCH ×2 (10:32→21:55)
[2022-11-15] MEDS: ATORVASTATIN 20 MG TAB PO SCH (21:52)
[2022-11-16] VITALS (17 sets, daily range): BP systolic 107–120; BP diastolic 57–78; PULSE 82–116; RESP 16–20; TEMP 97.7–98.2; O2SAT 96–100
[2022-11-16 06:23] LABS: Basophils # (auto) 0 10 ^3/uL (0-0.2); Basophils % (auto) 0.6 % (0.0-2.0); Lymphocytes # (auto) 0.9 10 ^3/uL (0.4-5.4); Mean Corpuscular Volume 78.8 fL (80.0-100.0); Neutrophils # (auto) 5.9 10 ^3/uL (1.6-8.6)
[2022-11-16 06:27] LABS: INR 2.87 (0.9-1.15)
[2022-11-16 06:30] LABS: Eosinophils # (auto) 0.1 10 ^3/uL (0-0.8); Eosinophils % (auto) 1.7 % (0.0-7.0); Hematocrit 31.1 % (41.0-53.0); Hemoglobin 9.9 g/dL (13.5-17.5); Lymphocytes % (auto) 11.5 % (10.0-50.0); Mean Corpuscular Hemoglobin 25.2 pg (28.0-32.0); Monocytes # (auto) 1.1 10 ^3/uL (0-1.3); Neutrophils % (auto) 73.2 % (37.0-80.0); Nucleated Red Blood Cells % 0.1 %; Red Blood Cells 3.94 10^6/uL (4.5-5.90); Red Cell Distribution Width 18.7 % (11.8-14.3); White Blood Cell 8.1 10^3/uL (4.4-10.8)
[2022-11-16] MEDS: EMPAGLIFLOZIN 10 MG TAB PO SCH (06:31)
[2022-11-16] MEDS: InsuLIN REG 1unit/0.01ml Soln (100units/ml) SC SCH ×4 (06:32→22:28)
[2022-11-16] MEDS: ACCU-CHEK COMFORT CURVE STRIP VI SCH ×4 (06:32→22:29)
[2022-11-16] MEDS: FUROSEMIDE 20 MG TAB PO SCH ×2 (06:32→18:49)
[2022-11-16 06:45] LABS: Potassium 3.2 mmol/L (3.5-5.1)
[2022-11-16 06:53] LABS: BUN/Creatinine Ratio 20.3 (10.0-20.0); Calcium 8.4 mg/dL (8.5-10.1)
[2022-11-16] MEDS: LEVALBUTEROL HCL 1.25 MG/3 ML NEB NEB SCH ×3 (07:12→18:35)
[2022-11-16] MEDS: IPRATROPIUM BROM 0.5 MG/2.5ML INH SOL NEB SCH ×3 (07:12→18:34)
[2022-11-16] MEDS ORDERED: POTASSIUM CHL 20 Meq TABLET PO ONE ×2 (07:30→13:45)
[2022-11-16] MEDS ORDERED: POTASSIUM CHL 20MEQ/100ML 100 ML IV ONE (07:30)
[2022-11-16] MEDS: FERROUS SULFATE 325mg EC TAB PO SCH ×2 (08:00→18:49)
[2022-11-16] MEDS: CELECOXIB 100 MG CAP PO SCH ×2 (11:40→22:18)
[2022-11-16] MEDS: COLCHICINE 0.6 MG CAP PO SCH (11:40)
[2022-11-16] MEDS: METOPROLOL TARTRATE 25 MG TAB PO SCH ×2 (11:41→22:22)
[2022-11-16] MEDS: POTASSIUM CHL 20 Meq TABLET PO SCH (11:41)
[2022-11-16] MEDS ORDERED: WARFARIN SODIUM 2 MG TAB PO ONE (17:00)
[2022-11-16] MEDS: cefTRIAXone 1GM/50ML D5W 50 ML IV SCH (17:32)
[2022-11-16] MEDS: ATORVASTATIN 20 MG TAB PO SCH (22:18)
[2022-11-17] VITALS (13 sets, daily range): BP systolic 108–124; BP diastolic 58–74; PULSE 79–108; RESP 16–20; TEMP 36.7; O2SAT 94–100
[2022-11-17] MEDS: LEVALBUTEROL HCL 1.25 MG/3 ML NEB NEB SCH ×4 (00:45→19:19)
[2022-11-17] MEDS: IPRATROPIUM BROM 0.5 MG/2.5ML INH SOL NEB SCH ×4 (00:45→19:19)
[2022-11-17] MEDS: ACCU-CHEK COMFORT CURVE STRIP VI SCH ×4 (06:13→22:10)
[2022-11-17] MEDS: FUROSEMIDE 20 MG TAB PO SCH ×2 (06:15→17:53)
[2022-11-17] MEDS: EMPAGLIFLOZIN 10 MG TAB PO SCH (06:15)
[2022-11-17] MEDS: InsuLIN REG 1unit/0.01ml Soln (100units/ml) SC SCH ×4 (06:16→22:10)
[2022-11-17 06:24] LABS: Potassium 3.1 mmol/L (3.5-5.1)
[2022-11-17 06:45] LABS: Albumin 1.9 g/dL (3.4-5.0); BUN/Creatinine Ratio 22.1 (10.0-20.0); Calcium 8.3 mg/dL (8.5-10.1)
[2022-11-17 06:48] LABS: Bilirubin, Total 0.8 mg/dL (0.2-1.0); Total Protein 6.6 g/dL (6.4-8.2)
[2022-11-17 06:56] LABS: Eosinophils # (auto) 0.2 10 ^3/uL (0-0.8); Lymphocytes # (auto) 0.9 10 ^3/uL (0.4-5.4)
[2022-11-17 06:58] LABS: Basophils # (auto) 0.1 10 ^3/uL (0-0.2); Basophils % (auto) 0.8 % (0.0-2.0); Hemoglobin 9.1 g/dL (13.5-17.5); Lymphocytes % (auto) 13.3 % (10.0-50.0); Mean Corpuscular Hemoglobin 25.2 pg (28.0-32.0); Mean Corpuscular Hgb Conc. 32.4 g/dL (32.0-36.0); Mean Corpuscular Volume 77.7 fL (80.0-100.0); Monocytes % (auto) 14.6 % (0.0-12.0); Neutrophils # (auto) 4.5 10 ^3/uL (1.6-8.6); Neutrophils % (auto) 68.3 % (37.0-80.0); Nucleated Red Blood Cells % 0.2 %; Red Cell Distribution Width 18.9 % (11.8-14.3); White Blood Cell 6.6 10^3/uL (4.4-10.8)
[2022-11-17] MEDS ORDERED: POTASSIUM CHL 20 Meq TABLET PO ONE (07:15)
[2022-11-17 08:54] LABS: INR 2.27 (0.9-1.15); Partial Thromboplastin Time 40.1 SEC (24.5-34.5)
[2022-11-17] MEDS: COLCHICINE 0.6 MG CAP PO SCH (10:15)
[2022-11-17] MEDS: FERROUS SULFATE 325mg EC TAB PO SCH ×2 (10:15→17:52)
[2022-11-17] MEDS: METOPROLOL TARTRATE 25 MG TAB PO SCH ×2 (10:15→22:10)
[2022-11-17] MEDS: cefTRIAXone 1GM/50ML D5W 50 ML IV SCH (10:15)
[2022-11-17] MEDS: CELECOXIB 100 MG CAP PO SCH ×2 (10:15→22:09)
[2022-11-17] MEDS: POTASSIUM CHL 20 Meq TABLET PO SCH (10:16)
[2022-11-17] MEDS ORDERED: VANCOMYCIN 1GM/250ML 250 ML IV ONE (13:45)
[2022-11-17] MEDS ORDERED: VANCOMYCIN PER PHARMACY 0 MG IV SCH (14:00)
[2022-11-17] MEDS ORDERED: WARFARIN SODIUM 2 MG TAB PO ONE (17:00)
[2022-11-17] MEDS: VANCOMYCIN 1GM/250ML 250 ML IV SCH (22:08)
[2022-11-17] MEDS: ATORVASTATIN 20 MG TAB PO SCH (22:09)
[2022-11-18] VITALS (16 sets, daily range): BP systolic 101–135; BP diastolic 54–67; PULSE 85–105; RESP 16–20; TEMP 97.6–98.5; O2SAT 94–100
[2022-11-18] MEDS: LEVALBUTEROL HCL 1.25 MG/3 ML NEB NEB SCH ×4 (00:35→18:40)
[2022-11-18] MEDS: IPRATROPIUM BROM 0.5 MG/2.5ML INH SOL NEB SCH ×4 (00:35→18:40)
[2022-11-18 05:29] LABS: INR 1.95 (0.9-1.15); Partial Thromboplastin Time 36.1 SEC (24.5-34.5)
[2022-11-18] MEDS: FUROSEMIDE 20 MG TAB PO SCH ×2 (06:24→18:07)
[2022-11-18] MEDS: InsuLIN REG 1unit/0.01ml Soln (100units/ml) SC SCH ×4 (06:25→22:10)
[2022-11-18] MEDS: EMPAGLIFLOZIN 10 MG TAB PO SCH (06:25)
[2022-11-18] MEDS: ACCU-CHEK COMFORT CURVE STRIP VI SCH ×4 (06:26→22:03)
[2022-11-18 07:18] LABS: Potassium 3.4 mmol/L (3.5-5.1)
[2022-11-18 07:23] LABS: BUN/Creatinine Ratio 18.3 (10.0-20.0); Calcium 8.6 mg/dL (8.5-10.1); Magnesium 2.1 mg/dL (1.6-2.6)
[2022-11-18] MEDS: VANCOMYCIN 1GM/250ML 250 ML IV SCH ×3 (07:26→22:40)
[2022-11-18] MEDS: POTASSIUM CHL 20 Meq TABLET PO SCH ×2 (10:29→22:02)
[2022-11-18] MEDS: COLCHICINE 0.6 MG CAP PO SCH (10:29)
[2022-11-18] MEDS: cefTRIAXone 1GM/50ML D5W 50 ML IV SCH (10:30)
[2022-11-18] MEDS: METOPROLOL TARTRATE 25 MG TAB PO SCH ×2 (10:31→22:03)
[2022-11-18] MEDS: FERROUS SULFATE 325mg EC TAB PO SCH ×2 (10:43→18:22)
[2022-11-18] MEDS: CELECOXIB 100 MG CAP PO SCH ×2 (10:43→22:02)
[2022-11-18] MEDS ORDERED: POTASSIUM EFFERVESENT TAB 25 MEQ GT ONE (15:15)
[2022-11-18] MEDS ORDERED: WARFARIN SODIUM 2 MG TAB PO ONE (17:00)
[2022-11-18] MEDS: PIPERACILLIN-TAZOB 3.375GM 100 ML IV SCH ×2 (18:08→23:47)
[2022-11-18] MEDS: ATORVASTATIN 20 MG TAB PO SCH (22:01)
[2022-11-19] VITALS (15 sets, daily range): BP systolic 92–135; BP diastolic 61–79; PULSE 80–101; RESP 16–18; TEMP 97.9–98.2; O2SAT 94–100
[2022-11-19] MEDS: IPRATROPIUM BROM 0.5 MG/2.5ML INH SOL NEB SCH ×4 (00:19→18:00)
[2022-11-19] MEDS: LEVALBUTEROL HCL 1.25 MG/3 ML NEB NEB SCH ×4 (00:19→18:00)
[2022-11-19] MEDS: VANCOMYCIN 1GM/250ML 250 ML IV SCH ×2 (04:32→10:32)
[2022-11-19 05:47] LABS: Albumin 1.9 g/dL (3.4-5.0); Calcium 8.3 mg/dL (8.5-10.1); Potassium 3.7 mmol/L (3.5-5.1)
[2022-11-19] MEDS: PIPERACILLIN-TAZOB 3.375GM 100 ML IV SCH ×3 (05:47→19:34)
[2022-11-19 05:50] LABS: Basophils # (auto) 0.1 10 ^3/uL (0-0.2); Eosinophils # (auto) 0.3 10 ^3/uL (0-0.8); Lymphocytes # (auto) 0.9 10 ^3/uL (0.4-5.4); Monocytes # (auto) 0.9 10 ^3/uL (0-1.3); Neutrophils # (auto) 4.9 10 ^3/uL (1.6-8.6); Red Cell Distribution Width 18.6 % (11.8-14.3); White Blood Cell 7.1 10^3/uL (4.4-10.8)
[2022-11-19] MEDS: FUROSEMIDE 20 MG TAB PO SCH ×2 (05:50→19:34)
[2022-11-19 05:52] LABS: BUN/Creatinine Ratio 15.5 (10.0-20.0); Basophils % (auto) 0.8 % (0.0-2.0); Bilirubin, Total 0.8 mg/dL (0.2-1.0); Eosinophils % (auto) 4.1 % (0.0-7.0); Lymphocytes % (auto) 12.7 % (10.0-50.0); Mean Corpuscular Hemoglobin 25.6 pg (28.0-32.0); Mean Corpuscular Hgb Conc. 33.2 g/dL (32.0-36.0); Monocytes % (auto) 13.2 % (0.0-12.0); Neutrophils % (auto) 69.2 % (37.0-80.0); Total Protein 6.8 g/dL (6.4-8.2)
[2022-11-19 06:08] LABS: INR 2.12 (0.9-1.15); Partial Thromboplastin Time 35.5 SEC (24.5-34.5)
[2022-11-19] MEDS: ACCU-CHEK COMFORT CURVE STRIP VI SCH ×4 (06:31→22:02)
[2022-11-19] MEDS: EMPAGLIFLOZIN 10 MG TAB PO SCH (06:32)
[2022-11-19] MEDS: InsuLIN REG 1unit/0.01ml Soln (100units/ml) SC SCH ×4 (06:36→22:09)
[2022-11-19] MEDS: FERROUS SULFATE 325mg EC TAB PO SCH ×2 (10:31→18:00)
[2022-11-19] MEDS: COLCHICINE 0.6 MG CAP PO SCH (10:32)
[2022-11-19] MEDS: METOPROLOL TARTRATE 25 MG TAB PO SCH ×2 (10:39→22:02)
[2022-11-19] MEDS: POTASSIUM CHL 20 Meq TABLET PO SCH ×2 (10:39→22:01)
[2022-11-19] MEDS: CELECOXIB 100 MG CAP PO SCH ×2 (10:40→22:01)
[2022-11-19] MEDS ORDERED: WARFARIN SODIUM 2 MG TAB PO ONE (17:00)
[2022-11-19] MEDS: ATORVASTATIN 20 MG TAB PO SCH (22:01)
[2022-11-20] VITALS (16 sets, daily range): BP systolic 108–121; BP diastolic 56–75; PULSE 85–101; RESP 14–21; TEMP 97.4–98.6; O2SAT 94–100
[2022-11-20] MEDS: PIPERACILLIN-TAZOB 3.375GM 100 ML IV SCH ×4 (01:22→19:52)
[2022-11-20 06:09] LABS: Basophils # (auto) 0.1 10 ^3/uL (0-0.2); Eosinophils # (auto) 0.3 10 ^3/uL (0-0.8); INR 2.12 (0.9-1.15); Lymphocytes # (auto) 0.9 10 ^3/uL (0.4-5.4); Neutrophils # (auto) 5.8 10 ^3/uL (1.6-8.6); Partial Thromboplastin Time 34.8 SEC (24.5-34.5); White Blood Cell 7.9 10^3/uL (4.4-10.8)
[2022-11-20 06:11] LABS: Eosinophils % (auto) 3.6 % (0.0-7.0); Hematocrit 29.2 % (41.0-53.0); Hemoglobin 9.6 g/dL (13.5-17.5); Lymphocytes % (auto) 10.8 % (10.0-50.0); Mean Corpuscular Hemoglobin 25.4 pg (28.0-32.0); Mean Corpuscular Hgb Conc. 32.9 g/dL (32.0-36.0); Neutrophils % (auto) 72.6 % (37.0-80.0); Nucleated Red Blood Cells % 0.1 %; Red Blood Cells 3.79 10^6/uL (4.5-5.90); Red Cell Distribution Width 18.5 % (11.8-14.3)
[2022-11-20 06:15] LABS: Calcium 8.9 mg/dL (8.5-10.1); Potassium 3.8 mmol/L (3.5-5.1)
[2022-11-20] MEDS: FUROSEMIDE 20 MG TAB PO SCH ×2 (06:17→17:34)
[2022-11-20] MEDS: ACCU-CHEK COMFORT CURVE STRIP VI SCH ×4 (06:17→21:53)
[2022-11-20] MEDS: EMPAGLIFLOZIN 10 MG TAB PO SCH (06:17)
[2022-11-20 06:21] LABS: BUN/Creatinine Ratio 12.7 (10.0-20.0)
[2022-11-20] MEDS: InsuLIN REG 1unit/0.01ml Soln (100units/ml) SC SCH ×4 (06:24→22:00)
[2022-11-20] MEDS: LEVALBUTEROL HCL 1.25 MG/3 ML NEB NEB SCH ×4 (06:29→19:14)
[2022-11-20] MEDS: IPRATROPIUM BROM 0.5 MG/2.5ML INH SOL NEB SCH ×4 (06:29→19:14)
[2022-11-20] MEDS: COLCHICINE 0.6 MG CAP PO SCH (10:15)
[2022-11-20] MEDS: POTASSIUM CHL 20 Meq TABLET PO SCH ×2 (10:16→21:53)
[2022-11-20] MEDS: CELECOXIB 100 MG CAP PO SCH ×2 (10:16→21:53)
[2022-11-20] MEDS: METOPROLOL TARTRATE 25 MG TAB PO SCH ×2 (10:17→21:53)
[2022-11-20] MEDS: FERROUS SULFATE 325mg EC TAB PO SCH ×2 (10:22→17:34)
[2022-11-20] MEDS ORDERED: WARFARIN SODIUM 5 MG TAB PO ONE (17:00)
[2022-11-20 17:05] LABS: Urine Bacteria NONE SEEN /hpf (None Seen); Urine Blood Negative /uL (Negative); Urine WBC 37 /hpf (0 - 3)
[2022-11-20] MEDS: ATORVASTATIN 20 MG TAB PO SCH (21:52)
[2022-11-21] VITALS (15 sets, daily range): BP systolic 102–125; BP diastolic 55–69; PULSE 69–108; RESP 14–20; TEMP 97.5–98.5; O2SAT 96–100
[2022-11-21] MEDS: IPRATROPIUM BROM 0.5 MG/2.5ML INH SOL NEB SCH ×5 (00:13→23:27)
[2022-11-21] MEDS: LEVALBUTEROL HCL 1.25 MG/3 ML NEB NEB SCH ×5 (00:13→23:27)
[2022-11-21] MEDS: PIPERACILLIN-TAZOB 3.375GM 100 ML IV SCH ×4 (02:23→20:02)
[2022-11-21 06:19] LABS: Basophils # (auto) 0.1 10 ^3/uL (0-0.2); Eosinophils # (auto) 0.3 10 ^3/uL (0-0.8); Eosinophils % (auto) 2.9 % (0.0-7.0); Hematocrit 31.8 % (41.0-53.0); Hemoglobin 10.3 g/dL (13.5-17.5); Lymphocytes % (auto) 10.5 % (10.0-50.0); Mean Corpuscular Hemoglobin 25.4 pg (28.0-32.0); Mean Corpuscular Hgb Conc. 32.4 g/dL (32.0-36.0); Mean Corpuscular Volume 78.5 fL (80.0-100.0); Monocytes # (auto) 0.9 10 ^3/uL (0-1.3); Monocytes % (auto) 10.1 % (0.0-12.0); Neutrophils # (auto) 7.1 10 ^3/uL (1.6-8.6); Neutrophils % (auto) 75.5 % (37.0-80.0); Red Blood Cells 4.06 10^6/uL (4.5-5.90); Red Cell Distribution Width 18.8 % (11.8-14.3); White Blood Cell 9.3 10^3/uL (4.4-10.8)
[2022-11-21] MEDS: EMPAGLIFLOZIN 10 MG TAB PO SCH (06:23)
[2022-11-21] MEDS: FUROSEMIDE 20 MG TAB PO SCH ×2 (06:26→20:02)
[2022-11-21] MEDS: ACCU-CHEK COMFORT CURVE STRIP VI SCH ×4 (06:26→21:51)
[2022-11-21] MEDS: InsuLIN REG 1unit/0.01ml Soln (100units/ml) SC SCH ×4 (06:28→21:53)
[2022-11-21 06:32] LABS: BUN/Creatinine Ratio 13.8 (10.0-20.0); Calcium 9.2 mg/dL (8.5-10.1); Potassium 4.3 mmol/L (3.5-5.1)
[2022-11-21 06:43] LABS: INR 2.25 (0.9-1.15)
[2022-11-21] MEDS: FERROUS SULFATE 325mg EC TAB PO SCH ×2 (07:54→20:01)
[2022-11-21] MEDS: COLCHICINE 0.6 MG CAP PO SCH (09:33)
[2022-11-21] MEDS: CELECOXIB 100 MG CAP PO SCH ×2 (09:33→21:51)
[2022-11-21] MEDS: POTASSIUM CHL 20 Meq TABLET PO SCH ×2 (09:33→21:51)
[2022-11-21] MEDS: METOPROLOL TARTRATE 25 MG TAB PO SCH ×2 (09:34→21:52)
[2022-11-21] MEDS ORDERED: WARFARIN SODIUM 5 MG TAB PO ONE (17:00)
[2022-11-21] MEDS: ATORVASTATIN 20 MG TAB PO SCH (21:51)
[2022-11-22] VITALS (9 sets, daily range): BP systolic 109–122; BP diastolic 53–67; PULSE 77–100; RESP 14–18; TEMP 97.6–98.4; O2SAT 9–100
[2022-11-22] MEDS: PIPERACILLIN-TAZOB 3.375GM 100 ML IV SCH ×4 (01:11→19:59)
[2022-11-22] MEDS: EMPAGLIFLOZIN 10 MG TAB PO SCH (05:49)
[2022-11-22] MEDS: ACCU-CHEK COMFORT CURVE STRIP VI SCH ×4 (05:50→22:58)
[2022-11-22] MEDS: FUROSEMIDE 20 MG TAB PO SCH ×2 (05:50→18:17)
[2022-11-22] MEDS: InsuLIN REG 1unit/0.01ml Soln (100units/ml) SC SCH ×4 (05:51→22:57)
[2022-11-22 06:02] LABS: INR 2.14 (0.9-1.15); Partial Thromboplastin Time 35.4 SEC (24.5-34.5)
[2022-11-22] MEDS: IPRATROPIUM BROM 0.5 MG/2.5ML INH SOL NEB SCH ×3 (07:14→18:51)
[2022-11-22] MEDS: LEVALBUTEROL HCL 1.25 MG/3 ML NEB NEB SCH ×3 (07:14→18:51)
[2022-11-22] MEDS: METOPROLOL TARTRATE 25 MG TAB PO SCH ×2 (09:55→22:56)
[2022-11-22] MEDS: FERROUS SULFATE 325mg EC TAB PO SCH ×2 (09:59→18:17)
[2022-11-22] MEDS: COLCHICINE 0.6 MG CAP PO SCH (09:59)
[2022-11-22] MEDS: POTASSIUM CHL 20 Meq TABLET PO SCH ×2 (10:00→22:55)
[2022-11-22] MEDS: CELECOXIB 100 MG CAP PO SCH ×2 (10:00→22:55)
[2022-11-22] MEDS ORDERED: WARFARIN SODIUM 2 MG TAB PO ONE (17:00)
[2022-11-22] MEDS: ATORVASTATIN 20 MG TAB PO SCH (22:56)
[2022-11-23] VITALS (14 sets, daily range): BP systolic 104–129; BP diastolic 58–78; PULSE 66–104; RESP 16–20; TEMP 89.1–98.8; O2SAT 91–100
[2022-11-23] MEDS: IPRATROPIUM BROM 0.5 MG/2.5ML INH SOL NEB SCH ×4 (00:30→18:50)
[2022-11-23] MEDS: LEVALBUTEROL HCL 1.25 MG/3 ML NEB NEB SCH ×4 (00:32→18:51)
[2022-11-23] MEDS: PIPERACILLIN-TAZOB 3.375GM 100 ML IV SCH ×4 (01:45→19:58)
[2022-11-23 05:56] LABS: INR 2.22 (0.9-1.15); Partial Thromboplastin Time 35.2 SEC (24.5-34.5)
[2022-11-23] MEDS: EMPAGLIFLOZIN 10 MG TAB PO SCH (06:39)
[2022-11-23] MEDS: FUROSEMIDE 20 MG TAB PO SCH ×2 (06:39→19:34)
[2022-11-23] MEDS: InsuLIN REG 1unit/0.01ml Soln (100units/ml) SC SCH ×4 (06:42→21:45)
[2022-11-23] MEDS: ACCU-CHEK COMFORT CURVE STRIP VI SCH ×4 (06:43→21:46)
[2022-11-23] MEDS: FERROUS SULFATE 325mg EC TAB PO SCH ×2 (08:35→19:34)
[2022-11-23] MEDS: COLCHICINE 0.6 MG CAP PO SCH (09:01)
[2022-11-23] MEDS: METOPROLOL TARTRATE 25 MG TAB PO SCH ×2 (09:01→21:44)
[2022-11-23] MEDS: POTASSIUM CHL 20 Meq TABLET PO SCH ×2 (09:01→21:43)
[2022-11-23] MEDS: CELECOXIB 100 MG CAP PO SCH ×2 (10:15→21:43)
[2022-11-23] MEDS ORDERED: WARFARIN SODIUM 5 MG TAB PO ONE (17:00)
[2022-11-23] MEDS: ATORVASTATIN 20 MG TAB PO SCH (21:44)
[2022-11-24] VITALS (15 sets, daily range): BP systolic 104–133; BP diastolic 62–80; PULSE 77–102; RESP 16–20; TEMP 98.1–98.7; O2SAT 95–100
[2022-11-24] MEDS: LEVALBUTEROL HCL 1.25 MG/3 ML NEB NEB SCH ×4 (00:09→19:13)
[2022-11-24] MEDS: IPRATROPIUM BROM 0.5 MG/2.5ML INH SOL NEB SCH ×4 (00:09→19:13)
[2022-11-24] MEDS: PIPERACILLIN-TAZOB 3.375GM 100 ML IV SCH ×3 (01:50→13:25)
[2022-11-24 05:30] LABS: Basophils # (auto) 0.1 10 ^3/uL (0-0.2); Eosinophils # (auto) 0.3 10 ^3/uL (0-0.8); Eosinophils % (auto) 3.1 % (0.0-7.0); Hemoglobin 10.4 g/dL (13.5-17.5)
[2022-11-24 05:32] LABS: Hematocrit 31.7 % (41.0-53.0); Lymphocytes # (auto) 1.2 10 ^3/uL (0.4-5.4); Lymphocytes % (auto) 12.3 % (10.0-50.0); Mean Corpuscular Hemoglobin 25.1 pg (28.0-32.0); Mean Corpuscular Hgb Conc. 32.7 g/dL (32.0-36.0); Neutrophils % (auto) 73.6 % (37.0-80.0); Red Blood Cells 4.12 10^6/uL (4.5-5.90); Red Cell Distribution Width 18.6 % (11.8-14.3); White Blood Cell 9.5 10^3/uL (4.4-10.8)
[2022-11-24 05:43] LABS: INR 2.2 (0.9-1.15); Partial Thromboplastin Time 35.3 SEC (24.5-34.5)
[2022-11-24 05:46] LABS: Albumin 2.3 g/dL (3.4-5.0); Calcium 9.6 mg/dL (8.5-10.1); Magnesium 2.4 mg/dL (1.6-2.6); Potassium 3.9 mmol/L (3.5-5.1)
[2022-11-24 05:50] LABS: BUN/Creatinine Ratio 15.4 (10.0-20.0); Bilirubin, Total 0.9 mg/dL (0.2-1.0); Total Protein 7.8 g/dL (6.4-8.2)
[2022-11-24] MEDS: FUROSEMIDE 20 MG TAB PO SCH ×2 (07:11→17:42)
[2022-11-24] MEDS: EMPAGLIFLOZIN 10 MG TAB PO SCH (07:11)
[2022-11-24] MEDS: ACCU-CHEK COMFORT CURVE STRIP VI SCH ×4 (07:12→21:42)
[2022-11-24] MEDS: InsuLIN REG 1unit/0.01ml Soln (100units/ml) SC SCH ×4 (07:13→21:42)
[2022-11-24] MEDS: POTASSIUM CHL 20 Meq TABLET PO SCH ×2 (09:20→21:41)
[2022-11-24] MEDS: CELECOXIB 100 MG CAP PO SCH ×2 (09:21→21:40)
[2022-11-24] MEDS: COLCHICINE 0.6 MG CAP PO SCH (09:21)
[2022-11-24] MEDS: METOPROLOL TARTRATE 25 MG TAB PO SCH ×2 (09:21→21:41)
[2022-11-24] MEDS: FERROUS SULFATE 325mg EC TAB PO SCH ×2 (09:24→17:43)
[2022-11-24] MEDS ORDERED: FLUCONAZOLE 100 MG TAB PO ONE (12:15)
[2022-11-24] MEDS: MEROPENEM 1GM IVPB 100 ML IV SCH (16:07)
[2022-11-24] MEDS ORDERED: WARFARIN SODIUM 5 MG TAB PO ONE (17:00)
[2022-11-24] MEDS: ATORVASTATIN 20 MG TAB PO SCH (21:40)
[2022-11-25] VITALS (15 sets, daily range): BP systolic 105–133; BP diastolic 69–95; PULSE 61–100; RESP 17–20; TEMP 36.5; O2SAT 94–100
[2022-11-25] MEDS: MEROPENEM 1GM IVPB 100 ML IV SCH ×4 (00:26→23:44)
[2022-11-25] MEDS: IPRATROPIUM BROM 0.5 MG/2.5ML INH SOL NEB SCH ×4 (00:50→19:25)
[2022-11-25] MEDS: LEVALBUTEROL HCL 1.25 MG/3 ML NEB NEB SCH ×4 (00:50→19:25)
[2022-11-25 05:54] LABS: INR 2.4 (0.9-1.15)
[2022-11-25] MEDS: InsuLIN REG 1unit/0.01ml Soln (100units/ml) SC SCH ×4 (06:35→21:52)
[2022-11-25] MEDS: EMPAGLIFLOZIN 10 MG TAB PO SCH (06:41)
[2022-11-25] MEDS: FUROSEMIDE 20 MG TAB PO SCH ×2 (06:41→17:15)
[2022-11-25] MEDS: ACCU-CHEK COMFORT CURVE STRIP VI SCH ×4 (06:52→21:53)
[2022-11-25] MEDS: METOPROLOL TARTRATE 25 MG TAB PO SCH ×2 (09:28→21:54)
[2022-11-25] MEDS: CELECOXIB 100 MG CAP PO SCH ×2 (09:29→21:53)
[2022-11-25] MEDS: POTASSIUM CHL 20 Meq TABLET PO SCH ×2 (09:29→21:53)
[2022-11-25] MEDS: FLUCONAZOLE 100 MG TAB PO SCH (09:29)
[2022-11-25] MEDS: FERROUS SULFATE 325mg EC TAB PO SCH ×2 (09:29→17:14)
[2022-11-25] MEDS: COLCHICINE 0.6 MG CAP PO SCH (09:30)
[2022-11-25] MEDS ORDERED: WARFARIN SODIUM 1 MG TAB PO ONE (17:00)
[2022-11-25] MEDS: ATORVASTATIN 20 MG TAB PO SCH (21:53)
[2022-11-26] VITALS (15 sets, daily range): BP systolic 108–125; BP diastolic 64–70; PULSE 82–102; RESP 14–22; TEMP 36.9; O2SAT 97–100
[2022-11-26] MEDS: IPRATROPIUM BROM 0.5 MG/2.5ML INH SOL NEB SCH ×4 (00:02→19:16)
[2022-11-26] MEDS: LEVALBUTEROL HCL 1.25 MG/3 ML NEB NEB SCH ×4 (00:02→19:16)
[2022-11-26 05:31] LABS: Basophils # (auto) 0.1 10 ^3/uL (0-0.2); Eosinophils # (auto) 0.2 10 ^3/uL (0-0.8); Hemoglobin 10.4 g/dL (13.5-17.5)
[2022-11-26 05:32] LABS: Basophils % (auto) 1.1 % (0.0-2.0); Eosinophils % (auto) 1.9 % (0.0-7.0); Hematocrit 32.4 % (41.0-53.0); Lymphocytes # (auto) 1.3 10 ^3/uL (0.4-5.4); Lymphocytes % (auto) 13.5 % (10.0-50.0); Mean Corpuscular Hemoglobin 24.9 pg (28.0-32.0); Mean Corpuscular Hgb Conc. 32.1 g/dL (32.0-36.0); Mean Corpuscular Volume 77.5 fL (80.0-100.0); Monocytes # (auto) 0.9 10 ^3/uL (0-1.3); Monocytes % (auto) 10.1 % (0.0-12.0); Neutrophils # (auto) 6.8 10 ^3/uL (1.6-8.6); Neutrophils % (auto) 73.4 % (37.0-80.0); Nucleated Red Blood Cells % 0.1 %; Red Blood Cells 4.18 10^6/uL (4.5-5.90); Red Cell Distribution Width 18.8 % (11.8-14.3); White Blood Cell 9.3 10^3/uL (4.4-10.8)
[2022-11-26 05:45] LABS: INR 2.48 (0.9-1.15); Partial Thromboplastin Time 36.5 SEC (24.5-34.5)
[2022-11-26] MEDS: InsuLIN REG 1unit/0.01ml Soln (100units/ml) SC SCH ×4 (06:18→22:21)
[2022-11-26] MEDS: MEROPENEM 1GM IVPB 100 ML IV SCH ×3 (06:24→22:23)
[2022-11-26] MEDS: FUROSEMIDE 20 MG TAB PO SCH ×2 (06:25→17:59)
[2022-11-26] MEDS: EMPAGLIFLOZIN 10 MG TAB PO SCH (06:25)
[2022-11-26] MEDS: ACCU-CHEK COMFORT CURVE STRIP VI SCH ×4 (06:25→22:12)
[2022-11-26] MEDS: COLCHICINE 0.6 MG CAP PO SCH (09:01)
[2022-11-26] MEDS: CELECOXIB 100 MG CAP PO SCH ×2 (09:01→22:08)
[2022-11-26] MEDS: POTASSIUM CHL 20 Meq TABLET PO SCH ×2 (09:01→22:11)
[2022-11-26] MEDS: FLUCONAZOLE 100 MG TAB PO SCH (09:01)
[2022-11-26] MEDS: FERROUS SULFATE 325mg EC TAB PO SCH ×2 (09:01→17:59)
[2022-11-26] MEDS: METOPROLOL TARTRATE 25 MG TAB PO SCH ×2 (09:02→22:09)
[2022-11-26] MEDS ORDERED: WARFARIN SODIUM 1 MG TAB PO ONE (17:00)
[2022-11-26] MEDS: ATORVASTATIN 20 MG TAB PO SCH (22:08)
[2022-11-27] VITALS (15 sets, daily range): BP systolic 115–152; BP diastolic 61–79; PULSE 75–93; RESP 16–22; TEMP 97.9–98.3; O2SAT 96–100
[2022-11-27] MEDS: LEVALBUTEROL HCL 1.25 MG/3 ML NEB NEB SCH ×3 (00:28→12:03)
[2022-11-27] MEDS: IPRATROPIUM BROM 0.5 MG/2.5ML INH SOL NEB SCH ×3 (00:28→12:04)
[2022-11-27 06:25] LABS: INR 2.69 (0.9-1.15); Partial Thromboplastin Time 38.7 SEC (24.5-34.5)
[2022-11-27] MEDS: MEROPENEM 1GM IVPB 100 ML IV SCH ×2 (07:06→16:53)
[2022-11-27] MEDS: EMPAGLIFLOZIN 10 MG TAB PO SCH (07:06)
[2022-11-27] MEDS: FUROSEMIDE 20 MG TAB PO SCH ×2 (07:06→18:00)
[2022-11-27] MEDS: ACCU-CHEK COMFORT CURVE STRIP VI SCH ×4 (07:07→22:15)
[2022-11-27] MEDS: InsuLIN REG 1unit/0.01ml Soln (100units/ml) SC SCH ×4 (07:16→22:16)
[2022-11-27] MEDS: FERROUS SULFATE 325mg EC TAB PO SCH ×2 (08:47→18:00)
[2022-11-27] MEDS: CELECOXIB 100 MG CAP PO SCH ×2 (10:07→22:15)
[2022-11-27] MEDS: COLCHICINE 0.6 MG CAP PO SCH (10:07)
[2022-11-27] MEDS: METOPROLOL TARTRATE 25 MG TAB PO SCH ×2 (10:08→22:15)
[2022-11-27] MEDS: FLUCONAZOLE 100 MG TAB PO SCH (10:09)
[2022-11-27] MEDS: POTASSIUM CHL 20 Meq TABLET PO SCH ×2 (10:09→22:14)
[2022-11-27] MEDS ORDERED: ALBUTEROL SULF 2.5 MG/0.5ML(0.5%) NEB SOLN NEB PRN (13:00)
[2022-11-27] MEDS ORDERED: IPRATROPIUM BROM 0.5 MG/2.5ML INH SOL NEB PRN (13:00)
[2022-11-27] MEDS ORDERED: WARFARIN SODIUM 2 MG TAB PO ONE (17:00)
[2022-11-27] MEDS: ATORVASTATIN 20 MG TAB PO SCH (22:14)
[2022-11-28] VITALS (10 sets, daily range): BP systolic 105–131; BP diastolic 57–73; PULSE 61–88; RESP 16–20; TEMP 97.6–98.3; O2SAT 96–100
[2022-11-28] MEDS: MEROPENEM 1GM IVPB 100 ML IV SCH ×3 (00:02→17:49)
[2022-11-28] MEDS: FUROSEMIDE 20 MG TAB PO SCH ×2 (06:03→17:49)
[2022-11-28] MEDS: ACCU-CHEK COMFORT CURVE STRIP VI SCH ×4 (06:03→22:18)
[2022-11-28] MEDS: EMPAGLIFLOZIN 10 MG TAB PO SCH (06:03)
[2022-11-28] MEDS: InsuLIN REG 1unit/0.01ml Soln (100units/ml) SC SCH ×4 (06:04→22:26)
[2022-11-28 06:17] LABS: Eosinophils # (auto) 0.2 10 ^3/uL (0-0.8); Lymphocytes # (auto) 1.3 10 ^3/uL (0.4-5.4); Neutrophils # (auto) 4.8 10 ^3/uL (1.6-8.6)
[2022-11-28 06:18] LABS: Basophils # (auto) 0.2 10 ^3/uL (0-0.2); Basophils % (auto) 2.1 % (0.0-2.0); Eosinophils % (auto) 2.6 % (0.0-7.0); Hematocrit 34.9 % (41.0-53.0); Hemoglobin 11.4 g/dL (13.5-17.5); Mean Corpuscular Hemoglobin 25.5 pg (28.0-32.0); Mean Corpuscular Hgb Conc. 32.6 g/dL (32.0-36.0); Mean Corpuscular Volume 78.1 fL (80.0-100.0); Monocytes # (auto) 0.8 10 ^3/uL (0-1.3); Monocytes % (auto) 11.4 % (0.0-12.0); Neutrophils % (auto) 65.9 % (37.0-80.0); Red Blood Cells 4.48 10^6/uL (4.5-5.90); Red Cell Distribution Width 18.7 % (11.8-14.3); White Blood Cell 7.3 10^3/uL (4.4-10.8)
[2022-11-28 06:21] LABS: INR 2.23 (0.9-1.15); Partial Thromboplastin Time 38.4 SEC (24.5-34.5)
[2022-11-28] MEDS: CELECOXIB 100 MG CAP PO SCH ×2 (09:08→22:17)
[2022-11-28] MEDS: POTASSIUM CHL 20 Meq TABLET PO SCH ×2 (09:08→22:18)
[2022-11-28] MEDS: METOPROLOL TARTRATE 25 MG TAB PO SCH ×2 (09:09→22:17)
[2022-11-28] MEDS: COLCHICINE 0.6 MG CAP PO SCH (09:09)
[2022-11-28] MEDS: FERROUS SULFATE 325mg EC TAB PO SCH ×2 (09:09→17:49)
[2022-11-28] MEDS ORDERED: WARFARIN SODIUM 2 MG TAB PO ONE (17:00)
[2022-11-28] MEDS: ATORVASTATIN 20 MG TAB PO SCH (22:16)
[2022-11-29] VITALS (11 sets, daily range): BP systolic 102–117; BP diastolic 60–79; PULSE 68–88; RESP 18–20; TEMP 97.5–98.4; O2SAT 95–100
[2022-11-29] MEDS: MEROPENEM 1GM IVPB 100 ML IV SCH ×3 (01:48→18:12)
[2022-11-29] MEDS: FUROSEMIDE 20 MG TAB PO SCH (05:26)
[2022-11-29 05:50] LABS: INR 2.4 (0.9-1.15); Partial Thromboplastin Time 39.9 SEC (24.5-34.5)
[2022-11-29] MEDS: ACCU-CHEK COMFORT CURVE STRIP VI SCH ×4 (06:11→22:35)
[2022-11-29] MEDS: InsuLIN REG 1unit/0.01ml Soln (100units/ml) SC SCH ×4 (06:13→22:39)
[2022-11-29] MEDS: EMPAGLIFLOZIN 10 MG TAB PO SCH (06:15)
[2022-11-29 09:05] LABS: Hemoglobin 11.2 g/dL (13.5-17.5); Lymphocytes # (auto) 1.1 10 ^3/uL (0.4-5.4); Lymphocytes % (auto) 15.5 % (10.0-50.0); Mean Corpuscular Hemoglobin 25.1 pg (28.0-32.0); Monocytes # (auto) 0.8 10 ^3/uL (0-1.3); Nucleated Red Blood Cells % 0.1 %; White Blood Cell 7.1 10^3/uL (4.4-10.8)
[2022-11-29 09:07] LABS: Basophils # (auto) 0.1 10 ^3/uL (0-0.2); Eosinophils # (auto) 0.1 10 ^3/uL (0-0.8); Eosinophils % (auto) 1.9 % (0.0-7.0); Hematocrit 34.8 % (41.0-53.0); Mean Corpuscular Hgb Conc. 32.2 g/dL (32.0-36.0); Mean Corpuscular Volume 77.8 fL (80.0-100.0); Monocytes % (auto) 11.7 % (0.0-12.0); Neutrophils % (auto) 69.9 % (37.0-80.0); Red Blood Cells 4.48 10^6/uL (4.5-5.90); Red Cell Distribution Width 18.9 % (11.8-14.3)
[2022-11-29] MEDS: COLCHICINE 0.6 MG CAP PO SCH (09:55)
[2022-11-29] MEDS: FERROUS SULFATE 325mg EC TAB PO SCH ×2 (09:55→18:26)
[2022-11-29] MEDS: POTASSIUM CHL 20 Meq TABLET PO SCH ×2 (09:55→22:31)
[2022-11-29] MEDS: CELECOXIB 100 MG CAP PO SCH ×2 (09:59→22:34)
[2022-11-29] MEDS: METOPROLOL TARTRATE 25 MG TAB PO SCH ×2 (10:00→22:31)
[2022-11-29] MEDS ORDERED: SODIUM CHLORIDE 0.9% 1,000 ML IV ONE (16:00)
[2022-11-29] MEDS ORDERED: WARFARIN SODIUM 1 MG TAB PO ONE (17:00)
[2022-11-29] MEDS: ATORVASTATIN 20 MG TAB PO SCH (22:35)
[2022-11-30] VITALS (10 sets, daily range): BP systolic 106–129; BP diastolic 58–72; PULSE 73–90; RESP 16–20; TEMP 97.5–98.6; O2SAT 99–100
[2022-11-30] MEDS: MEROPENEM 1GM IVPB 100 ML IV SCH ×4 (00:28→22:29)
[2022-11-30] MEDS: EMPAGLIFLOZIN 10 MG TAB PO SCH (06:34)
[2022-11-30] MEDS: InsuLIN REG 1unit/0.01ml Soln (100units/ml) SC SCH ×4 (06:34→22:38)
[2022-11-30] MEDS: ACCU-CHEK COMFORT CURVE STRIP VI SCH ×3 (06:35→17:57)
[2022-11-30 07:21] LABS: INR 2.51 (0.9-1.15); Partial Thromboplastin Time 39.2 SEC (24.5-34.5)
[2022-11-30 07:49] LABS: Calcium 9.3 mg/dL (8.5-10.1); Potassium 4.6 mmol/L (3.5-5.1)
[2022-11-30 07:51] LABS: BUN/Creatinine Ratio 35.6 (10.0-20.0)
[2022-11-30] MEDS: COLCHICINE 0.6 MG CAP PO SCH (09:24)
[2022-11-30] MEDS: POTASSIUM CHL 20 Meq TABLET PO SCH ×2 (09:24→22:47)
[2022-11-30] MEDS: FERROUS SULFATE 325mg EC TAB PO SCH ×2 (09:26→17:57)
[2022-11-30] MEDS: METOPROLOL TARTRATE 25 MG TAB PO SCH ×2 (09:26→22:00)
[2022-11-30] MEDS: CELECOXIB 100 MG CAP PO SCH ×2 (09:26→22:57)
[2022-11-30] MEDS ORDERED: SODIUM CHLORIDE 0.9% 1,000 ML IV ONE (10:45)
[2022-11-30] MEDS ORDERED: WARFARIN SODIUM 2.5 MG TAB PO ONE (17:00)
[2022-11-30] MEDS: ATORVASTATIN 20 MG TAB PO SCH (22:46)
[2022-12-01] VITALS (8 sets, daily range): BP systolic 106–124; BP diastolic 66–71; PULSE 62–98; RESP 17–20; TEMP 97.2–98.6; O2SAT 97–100
[2022-12-01] MEDS: ACCU-CHEK COMFORT CURVE STRIP VI SCH ×4 (02:48→17:07)
[2022-12-01 06:08] LABS: INR 2.55 (0.9-1.15); Partial Thromboplastin Time 40.7 SEC (24.5-34.5)
[2022-12-01] MEDS: InsuLIN REG 1unit/0.01ml Soln (100units/ml) SC SCH ×4 (07:00→23:11)
[2022-12-01] MEDS: EMPAGLIFLOZIN 10 MG TAB PO SCH (07:02)
[2022-12-01] MEDS: MEROPENEM 1GM IVPB 100 ML IV SCH ×2 (08:57→17:07)
[2022-12-01] MEDS: POTASSIUM CHL 20 Meq TABLET PO SCH (08:57)
[2022-12-01] MEDS: METOPROLOL TARTRATE 25 MG TAB PO SCH ×2 (08:58→22:00)
[2022-12-01] MEDS: COLCHICINE 0.6 MG CAP PO SCH (08:58)
[2022-12-01] MEDS: CELECOXIB 100 MG CAP PO SCH ×2 (08:59→23:07)
[2022-12-01] MEDS: FERROUS SULFATE 325mg EC TAB PO SCH ×2 (08:59→17:07)
[2022-12-01] MEDS ORDERED: WARFARIN SODIUM 2.5 MG TAB PO ONE (17:00)
[2022-12-01] MEDS: ATORVASTATIN 20 MG TAB PO SCH (23:08)
[2022-12-02] VITALS (8 sets, daily range): BP systolic 98–123; BP diastolic 60–76; PULSE 69–95; RESP 17–19; TEMP 98–98.7; O2SAT 95–100
[2022-12-02] MEDS: ACCU-CHEK COMFORT CURVE STRIP VI SCH ×4 (00:32→17:39)
[2022-12-02] MEDS: MEROPENEM 1GM IVPB 100 ML IV SCH ×2 (00:40→08:52)
[2022-12-02] MEDS: InsuLIN REG 1unit/0.01ml Soln (100units/ml) SC SCH ×4 (07:00→22:43)
[2022-12-02 07:02] LABS: INR 2.38 (0.9-1.15); Partial Thromboplastin Time 39.3 SEC (24.5-34.5)
[2022-12-02 07:05] LABS: Basophils # (auto) 0.1 10 ^3/uL (0-0.2); Eosinophils # (auto) 0.2 10 ^3/uL (0-0.8); Hemoglobin 11.2 g/dL (13.5-17.5); Lymphocytes # (auto) 1.1 10 ^3/uL (0.4-5.4); Nucleated Red Blood Cells % 0.1 %; White Blood Cell 6.3 10^3/uL (4.4-10.8)
[2022-12-02 07:09] LABS: Basophils % (auto) 1.5 % (0.0-2.0); Eosinophils % (auto) 2.6 % (0.0-7.0); Hematocrit 34.5 % (41.0-53.0); Lymphocytes % (auto) 16.8 % (10.0-50.0); Mean Corpuscular Hemoglobin 25.4 pg (28.0-32.0); Mean Corpuscular Hgb Conc. 32.3 g/dL (32.0-36.0); Mean Corpuscular Volume 78.8 fL (80.0-100.0); Monocytes % (auto) 15.4 % (0.0-12.0); Neutrophils % (auto) 63.7 % (37.0-80.0); Red Blood Cells 4.39 10^6/uL (4.5-5.90); Red Cell Distribution Width 19.1 % (11.8-14.3)
[2022-12-02] MEDS: EMPAGLIFLOZIN 10 MG TAB PO SCH (07:52)
[2022-12-02] MEDS: COLCHICINE 0.6 MG CAP PO SCH (08:52)
[2022-12-02] MEDS: FERROUS SULFATE 325mg EC TAB PO SCH ×2 (08:52→17:42)
[2022-12-02] MEDS: CELECOXIB 100 MG CAP PO SCH ×2 (08:52→22:51)
[2022-12-02] MEDS: FUROSEMIDE 20 MG TAB PO SCH (08:53)
[2022-12-02] MEDS: METOPROLOL TARTRATE 25 MG TAB PO SCH ×2 (08:54→22:54)
[2022-12-02] MEDS ORDERED: WARFARIN SODIUM 2.5 MG TAB PO ONE (17:00)
[2022-12-02] MEDS: ATORVASTATIN 20 MG TAB PO SCH (22:52)
[2022-12-03] VITALS (8 sets, daily range): BP systolic 104–130; BP diastolic 65–71; PULSE 68–92; RESP 16–19; TEMP 97.6–98; O2SAT 94–99
[2022-12-03] MEDS: ACCU-CHEK COMFORT CURVE STRIP VI SCH ×5 (00:08→22:17)
[2022-12-03 06:50] LABS: INR 2.25 (0.9-1.15); Partial Thromboplastin Time 40.1 SEC (24.5-34.5)
[2022-12-03] MEDS: InsuLIN REG 1unit/0.01ml Soln (100units/ml) SC SCH ×4 (07:00→21:58)
[2022-12-03] MEDS: EMPAGLIFLOZIN 10 MG TAB PO SCH (07:20)
[2022-12-03] MEDS: FERROUS SULFATE 325mg EC TAB PO SCH ×2 (10:46→17:32)
[2022-12-03] MEDS: METOPROLOL TARTRATE 25 MG TAB PO SCH ×2 (10:47→22:05)
[2022-12-03] MEDS: CELECOXIB 100 MG CAP PO SCH ×2 (10:48→22:12)
[2022-12-03] MEDS: FUROSEMIDE 20 MG TAB PO SCH (10:48)
[2022-12-03] MEDS: COLCHICINE 0.6 MG CAP PO SCH (10:48)
[2022-12-03] MEDS ORDERED: WARFARIN SODIUM 1 MG TAB PO ONE (17:00)
[2022-12-03] MEDS: ATORVASTATIN 20 MG TAB PO SCH (22:16)
[2022-12-04] VITALS (8 sets, daily range): BP systolic 119–132; BP diastolic 68–78; PULSE 65–88; RESP 16–19; TEMP 97.9–98.6; O2SAT 99–100
[2022-12-04 06:25] LABS: INR 2.45 (0.9-1.15); Partial Thromboplastin Time 33.8 SEC (24.5-34.5)
[2022-12-04] MEDS: EMPAGLIFLOZIN 10 MG TAB PO SCH (06:30)
[2022-12-04] MEDS: InsuLIN REG 1unit/0.01ml Soln (100units/ml) SC SCH ×4 (06:31→22:21)
[2022-12-04] MEDS: ACCU-CHEK COMFORT CURVE STRIP VI SCH ×4 (06:32→22:18)
[2022-12-04] MEDS: METOPROLOL TARTRATE 25 MG TAB PO SCH ×2 (10:13→22:18)
[2022-12-04] MEDS: COLCHICINE 0.6 MG CAP PO SCH (10:14)
[2022-12-04] MEDS: CELECOXIB 100 MG CAP PO SCH ×2 (10:14→22:17)
[2022-12-04] MEDS: FERROUS SULFATE 325mg EC TAB PO SCH ×2 (10:14→17:11)
[2022-12-04] MEDS: FUROSEMIDE 20 MG TAB PO SCH (10:14)
[2022-12-04] MEDS ORDERED: WARFARIN SODIUM 1 MG TAB PO ONE (17:00)
[2022-12-04] MEDS: ATORVASTATIN 20 MG TAB PO SCH (22:17)
[2022-12-05 05:00] VITALS: BP 127/67; PULSE 62; RESP 18; TEMP 97.7; O2SAT 100
[2022-12-05] MEDS: EMPAGLIFLOZIN 10 MG TAB PO SCH (06:20)
[2022-12-05] MEDS: InsuLIN REG 1unit/0.01ml Soln (100units/ml) SC SCH ×4 (06:21→22:00)
[2022-12-05] MEDS: ACCU-CHEK COMFORT CURVE STRIP VI SCH ×4 (06:21→22:39)
[2022-12-05 08:52] VITALS: BP 133/80; PULSE 66; RESP 22; TEMP 98.1; O2SAT 97
[2022-12-05] MEDS: FERROUS SULFATE 325mg EC TAB PO SCH ×2 (09:04→18:07)
[2022-12-05] MEDS: COLCHICINE 0.6 MG CAP PO SCH (10:36)
[2022-12-05] MEDS: CELECOXIB 100 MG CAP PO SCH ×2 (10:36→22:37)
[2022-12-05] MEDS: cefTRIAXone 1GM/50ML D5W 50 ML IV SCH (10:36)
[2022-12-05] MEDS: FUROSEMIDE 20 MG TAB PO SCH (10:37)
[2022-12-05] MEDS: METOPROLOL TARTRATE 25 MG TAB PO SCH ×2 (10:37→22:38)
[2022-12-05 13:22] VITALS: BP 110/68; PULSE 74; RESP 22; TEMP 98.1; O2SAT 99
[2022-12-05 16:42] VITALS: BP 119/61; PULSE 79; RESP 22; TEMP 97.3; O2SAT 94
[2022-12-05] MEDS ORDERED: WARFARIN SODIUM 2 MG TAB PO ONE (17:00)
[2022-12-05 22:10] VITALS: BP 124/70; PULSE 87; RESP 16; TEMP 98.4; O2SAT 99
[2022-12-05] MEDS: ATORVASTATIN 20 MG TAB PO SCH (22:38)
[2022-12-06 05:24] VITALS: BP 128/70; PULSE 88; RESP 18; TEMP 98; O2SAT 94
[2022-12-06 05:43] LABS: INR 1.97 (0.9-1.15)
[2022-12-06] MEDS: EMPAGLIFLOZIN 10 MG TAB PO SCH (06:46)
[2022-12-06] MEDS: InsuLIN REG 1unit/0.01ml Soln (100units/ml) SC SCH ×4 (06:46→22:43)
[2022-12-06] MEDS: ACCU-CHEK COMFORT CURVE STRIP VI SCH ×4 (06:46→22:35)
[2022-12-06 09:00] VITALS: BP 112/65; PULSE 95; RESP 16; TEMP 97.7; O2SAT 100
[2022-12-06] MEDS: CELECOXIB 100 MG CAP PO SCH ×2 (09:00→22:34)
[2022-12-06] MEDS: COLCHICINE 0.6 MG CAP PO SCH (09:00)
[2022-12-06] MEDS: cefTRIAXone 1GM/50ML D5W 50 ML IV SCH (09:00)
[2022-12-06] MEDS: FUROSEMIDE 20 MG TAB PO SCH (09:01)
[2022-12-06] MEDS: FERROUS SULFATE 325mg EC TAB PO SCH ×2 (09:01→17:32)
[2022-12-06] MEDS: METOPROLOL TARTRATE 25 MG TAB PO SCH ×2 (09:01→22:27)
[2022-12-06 13:00] VITALS: BP 111/62; PULSE 82; RESP 16; TEMP 98.2; O2SAT 100
[2022-12-06 17:00] VITALS: BP 112/81; PULSE 82; RESP 16; TEMP 97.3; O2SAT 100
[2022-12-06] MEDS ORDERED: WARFARIN SODIUM 5 MG TAB PO ONE (17:00)
[2022-12-06 22:29] VITALS: BP 129/83; PULSE 95; RESP 22; TEMP 98.1; O2SAT 100
[2022-12-06] MEDS: ATORVASTATIN 20 MG TAB PO SCH (22:34)
[2022-12-07 04:53] VITALS: BP 110/72; PULSE 87; RESP 22; TEMP 98.3; O2SAT 100
[2022-12-07] MEDS: EMPAGLIFLOZIN 10 MG TAB PO SCH (06:18)
[2022-12-07] MEDS: ACCU-CHEK COMFORT CURVE STRIP VI SCH ×4 (06:18→22:21)
[2022-12-07] MEDS: InsuLIN REG 1unit/0.01ml Soln (100units/ml) SC SCH ×4 (06:20→22:30)
[2022-12-07 07:44] LABS: Basophils # (auto) 0.1 10 ^3/uL (0-0.2); Basophils % (auto) 2.5 % (0.0-2.0); Eosinophils # (auto) 0.3 10 ^3/uL (0-0.8); Eosinophils % (auto) 5.3 % (0.0-7.0); Hematocrit 34.3 % (41.0-53.0); Hemoglobin 10.9 g/dL (13.5-17.5); Lymphocytes # (auto) 0.9 10 ^3/uL (0.4-5.4); Lymphocytes % (auto) 16.4 % (10.0-50.0); Mean Corpuscular Hgb Conc. 31.9 g/dL (32.0-36.0); Mean Corpuscular Volume 78.3 fL (80.0-100.0); Monocytes # (auto) 0.7 10 ^3/uL (0-1.3); Monocytes % (auto) 11.8 % (0.0-12.0); Neutrophils # (auto) 3.7 10 ^3/uL (1.6-8.6); Red Blood Cells 4.38 10^6/uL (4.5-5.90); Red Cell Distribution Width 18.3 % (11.8-14.3); White Blood Cell 5.7 10^3/uL (4.4-10.8)
[2022-12-07 08:00] VITALS: PULSE 87; RESP 19; O2SAT 97
[2022-12-07 08:06] LABS: INR 1.55 (0.9-1.15); Partial Thromboplastin Time 34.3 SEC (24.5-34.5)
[2022-12-07] MEDS: FERROUS SULFATE 325mg EC TAB PO SCH ×2 (08:32→17:48)
[2022-12-07] MEDS: cefTRIAXone 1GM/50ML D5W 50 ML IV SCH (08:32)
[2022-12-07 09:00] VITALS: BP 121/72; PULSE 89; RESP 18; TEMP 98.1; O2SAT 100
[2022-12-07] MEDS: CELECOXIB 100 MG CAP PO SCH ×2 (10:10→22:21)
[2022-12-07] MEDS: COLCHICINE 0.6 MG CAP PO SCH (10:10)
[2022-12-07] MEDS: FUROSEMIDE 20 MG TAB PO SCH (10:15)
[2022-12-07] MEDS: METOPROLOL TARTRATE 25 MG TAB PO SCH ×2 (10:16→22:20)
[2022-12-07 13:00] VITALS: BP 113/63; PULSE 87; RESP 19; TEMP 98.2; O2SAT 97
[2022-12-07 16:57] VITALS: BP 102/42; PULSE 60; RESP 18; TEMP 97.6; O2SAT 96
[2022-12-07] MEDS ORDERED: WARFARIN SODIUM 2.5 MG TAB PO ONE (17:00)
[2022-12-07] MEDS: LINEZOLID 600MG TABLET PO SCH (22:20)
[2022-12-07] MEDS: ATORVASTATIN 20 MG TAB PO SCH (22:20)
[2022-12-07 22:23] VITALS: BP 108/71; PULSE 91; RESP 20; TEMP 98.7; O2SAT 96
[2022-12-08] VITALS (7 sets, daily range): BP systolic 105–120; BP diastolic 57–70; PULSE 83–92; RESP 18–19; TEMP 97.9–98.4; O2SAT 96–100
[2022-12-08] MEDS: EMPAGLIFLOZIN 10 MG TAB PO SCH (06:57)
[2022-12-08] MEDS: ACCU-CHEK COMFORT CURVE STRIP VI SCH ×4 (06:57→22:29)
[2022-12-08] MEDS: InsuLIN REG 1unit/0.01ml Soln (100units/ml) SC SCH ×4 (06:59→22:32)
[2022-12-08] MEDS: cefTRIAXone 1GM/50ML D5W 50 ML IV SCH (09:50)
[2022-12-08] MEDS: FERROUS SULFATE 325mg EC TAB PO SCH ×2 (09:51→18:25)
[2022-12-08] MEDS: FUROSEMIDE 20 MG TAB PO SCH (09:51)
[2022-12-08] MEDS: METOPROLOL TARTRATE 25 MG TAB PO SCH ×2 (09:51→22:29)
[2022-12-08] MEDS: COLCHICINE 0.6 MG CAP PO SCH (09:51)
[2022-12-08] MEDS: CELECOXIB 100 MG CAP PO SCH ×2 (09:52→22:28)
[2022-12-08 10:16] LABS: Eosinophils # (auto) 0.2 10 ^3/uL (0-0.8); Eosinophils % (auto) 3.9 % (0.0-7.0); Hemoglobin 10.2 g/dL (13.5-17.5); Lymphocytes # (auto) 0.9 10 ^3/uL (0.4-5.4); Monocytes # (auto) 0.6 10 ^3/uL (0-1.3)
[2022-12-08 10:18] LABS: Basophils # (auto) 0.1 10 ^3/uL (0-0.2); Basophils % (auto) 2.8 % (0.0-2.0); Hematocrit 31.9 % (41.0-53.0); Lymphocytes % (auto) 17.4 % (10.0-50.0); Mean Corpuscular Hemoglobin 24.9 pg (28.0-32.0); Mean Corpuscular Volume 77.9 fL (80.0-100.0); Monocytes % (auto) 12.5 % (0.0-12.0); Neutrophils # (auto) 3.2 10 ^3/uL (1.6-8.6); Neutrophils % (auto) 63.4 % (37.0-80.0); Nucleated Red Blood Cells % 0.2 %; Red Cell Distribution Width 18.5 % (11.8-14.3)
[2022-12-08] MEDS: LINEZOLID 600MG TABLET PO SCH ×2 (10:26→22:29)
[2022-12-08 10:29] LABS: INR 1.8 (0.9-1.15)
[2022-12-08 10:30] LABS: Albumin 2.4 g/dL (3.4-5.0); Calcium 9.2 mg/dL (8.5-10.1); Potassium 4.1 mmol/L (3.5-5.1)
[2022-12-08 10:34] LABS: BUN/Creatinine Ratio 28.9 (10.0-20.0); Bilirubin, Total 0.6 mg/dL (0.2-1.0); Total Protein 7.5 g/dL (6.4-8.2)
[2022-12-08] MEDS ORDERED: WARFARIN SODIUM 2 MG TAB PO ONE (17:00)
[2022-12-08] MEDS: ATORVASTATIN 20 MG TAB PO SCH (22:29)
[2022-12-09 05:00] VITALS: BP 120/63; PULSE 75; RESP 17; TEMP 98.2; O2SAT 98
[2022-12-09 06:03] LABS: INR 1.92 (0.9-1.15); Partial Thromboplastin Time 35.6 SEC (24.5-34.5)
[2022-12-09] MEDS: EMPAGLIFLOZIN 10 MG TAB PO SCH (06:39)
[2022-12-09] MEDS: ACCU-CHEK COMFORT CURVE STRIP VI SCH ×3 (06:39→17:00)
[2022-12-09] MEDS: InsuLIN REG 1unit/0.01ml Soln (100units/ml) SC SCH ×3 (06:41→17:00)
[2022-12-09 08:00] VITALS: PULSE 80; RESP 18; O2SAT 98
[2022-12-09 09:00] VITALS: BP 126/72; PULSE 67; RESP 18; O2SAT 100
[2022-12-09 10:00] VITALS: O2SAT 98
[2022-12-09] MEDS: METOPROLOL TARTRATE 25 MG TAB PO SCH (10:15)
[2022-12-09] MEDS: FERROUS SULFATE 325mg EC TAB PO SCH ×2 (10:15→18:00)
[2022-12-09] MEDS: LINEZOLID 600MG TABLET PO SCH (10:16)
[2022-12-09] MEDS: FUROSEMIDE 20 MG TAB PO SCH (10:16)
[2022-12-09] MEDS: COLCHICINE 0.6 MG CAP PO SCH (10:16)
[2022-12-09] MEDS: CELECOXIB 100 MG CAP PO SCH (10:16)
[2022-12-09] MEDS: cefTRIAXone 1GM/50ML D5W 50 ML IV SCH (10:17)
[2022-12-09 13:00] VITALS: BP 100/67; PULSE 80; RESP 18; TEMP 97.6; O2SAT 98
[2022-12-09 17:00] VITALS: BP 107/70; PULSE 86; RESP 18; TEMP 98; O2SAT 100
[2022-12-09] MEDS ORDERED: WARFARIN SODIUM 2 MG TAB PO ONE (17:00)
== END 2022-12-09 19:00 | DRG 720 ==
LOC: EDBD 09:47 → ER 09:47 → EDSEX 09:47 → TELE 13:51 → TELE-EAST 10-29 18:27 → EAST 11-09 17:30
PROVIDERS: ADMIT Nurse Practitioner Acute Care; ATTEND Nurse Practitioner Acute Care
DX: A41.1 Sepsis due to other specified staphylococcus (principal); J96.21 Acute and chronic respiratory failure with hypoxia; I50.43 Acute on chronic combined systolic (congestive) and diastolic (congestive) heart failure; G93.41 Metabolic encephalopathy; I21.A1 Myocardial infarction type 2; E44.1 Mild protein-calorie malnutrition; I13.0 Hypertensive heart and chronic kidney disease with heart failure and stage 1 through stage 4 chronic kidney disease, or unspecified chronic kidney disease; J18.9 Pneumonia, unspecified organism; E87.21 Acute metabolic acidosis; I42.9 Cardiomyopathy, unspecified; N17.9 Acute kidney failure, unspecified; E11.22 Type 2 diabetes mellitus with diabetic chronic kidney disease; E66.01 Morbid (severe) obesity due to excess calories; J44.1 Chronic obstructive pulmonary disease with (acute) exacerbation; L03.115 Cellulitis of right lower limb; L03.116 Cellulitis of left lower limb; N18.32 Chronic kidney disease, stage 3b; E78.5 Hyperlipidemia, unspecified; M17.12 Unilateral primary osteoarthritis, left knee; I48.20 Chronic atrial fibrillation, unspecified; J44.0 Chronic obstructive pulmonary disease with (acute) lower respiratory infection; S30.91XA Unspecified superficial injury of lower back and pelvis, initial encounter; X58.XXXA Exposure to other specified factors, initial encounter; B95.2 Enterococcus as the cause of diseases classified elsewhere; B96.89 Other specified bacterial agents as the cause of diseases classified elsewhere; I89.0 Lymphedema, not elsewhere classified; Z79.01 Long term (current) use of anticoagulants; Z86.718 Personal history of other venous thrombosis and embolism; Z83.3 Family history of diabetes mellitus; Z82.49 Family history of ischemic heart disease and other diseases of the circulatory system; Z80.0 Family history of malignant neoplasm of digestive organs; Z68.44 Body mass index [BMI] 60.0-69.9, adult; Y93.89 Activity, other specified; Y92.89 Other specified places as the place of occurrence of the external cause; Y99.8 Other external cause status
CPT/HCPCS: 36415; 71045; 73502; 73560; 73590; 73600; 80048; 80053; 80202; 81001; 82140; 82306; 82565; 82570; 82962; 83540; 83550; 83605; 83735; 83880; 84132; 84300; 84402; 84403; 84484; 84550; 85025; 85610; 85652; 85730; 86141; 87040; 87077; 87081; 87086; 87088; 87186; 87205; 93005; 93306; 93970; 94640; 96365; 96367; 96375; 97110; 97116; 97163; 97530; 99291; G0378; J0696; J1815; J2185; J2405; J2543; J3480; J3490